=== PATIENT | male | born 1945 | race Asian ===

== ENCOUNTER 2017-07-17 01:45 | Emergency (ER) | payer OTHER, MEDICARE ==
[~2017-07-17] VITALS: Ht 170.2 cm; Wt 54.4 kg
[2017-07-17 01:45] VITALS: BP_SYST 122
[2017-07-17] MEDS ORDERED: GASTROGRAFIN 120 ML ONE (02:06)
[2017-07-17 03:17] VITALS: BP_SYST 122
== END 2017-07-17 03:17 | disposition home or self-care (01) ==
LOC: SED 01:45
DX: Z43.1 Encounter for attention to gastrostomy (principal); E11.9 Type 2 diabetes mellitus without complications; G81.91 Hemiplegia, unspecified affecting right dominant side
CPT/HCPCS: 43760; 74240; 99284; Q9963

== ENCOUNTER 2017-08-04 18:28 | Inpatient (IN) | payer OTHER, MEDICARE ==
[~2017-08-04] VITALS: Ht 172.7 cm; Wt 58.5 kg
[~2017-08-04 18:28] MED LIST: ALBU2.5V7 INH; ASCO500T20 GT; ASPI81TA2 GT; CRAN1CAP5 GT; DOCU-144 GT; FER300L GT; HYDR-3606 GT; INSU100V11 SQ; LANS15CA5 GT; LIP10 GT; MAGN400O4 PO; MULT-1184 GT; NITSL SL; SENN8.8S12 GT; TYLL650 GT
--- NOTE | 2017-08-04 18:28 | NUR ---
Pt was placed in bed 1 by ACLS 64
[2017-08-04 18:40] VITALS: BP_SYST 141
--- NOTE | 2017-08-04 18:40 | NUR ---
[facility], s/p ? aspiration, nurses at facility then report that patient had episode of red emesis. Oxygen saturation decreased to 87%, patient placed on 15 lpm via NRB Mask. Patient with eyes open, non-verbal, patient placed on cardiac montior which shows an atrial paced rhythm, patient on BP monitor, and pulse oximeter. Per POLST from Michael Campbell, patient is a DNR. Patient moaning, but unable to determine if patient is having pain. Awaiting evaluation by ER MD, will continue to observe and assess.
[2017-08-04] MEDS ORDERED: IPRATROPIUM BROM 0.5 MG/2.5 ML VIAL.NEB (ATROVENT) IH ONE (18:45)
[2017-08-04] MEDS ORDERED: ALBUTEROL SULFATE 0.083% 2.5 MG/3 ML VIAL.NEB IH ONE (18:45)
--- NOTE | 2017-08-04 18:45 | NUR ---
Dr Summers at bedside to evaluate patient.
[2017-08-04 19:10] LABS: BASOPHILS % (AUTO) 0.2 % (0.0-2.0); EOSINOPHILS # (AUTO) 0.1 K/uL (0.0-0.4); EOSINOPHILS % (AUTO) 1.3 % (0.0-4.0); HEMATOCRIT 40.4 % (36-54); HEMOGLOBIN 13.4 g/dL (14.0-18.0); LYMPHOCYTES # (AUTO) 1.9 K/uL (1.0-5.5); LYMPHOCYTES % (AUTO) 17.8 % (20.5-51.5); MEAN CORPUSCULAR HEMOGLOBIN 30 pg (27-31); MEAN CORPUSCULAR HGB CONC 33 % (32-36); MEAN CORPUSCULAR VOLUME 91 fL (79.0-98.0); MONOCYTES # (AUTO) 0.8 K/uL (0.0-1.0); MONOCYTES % (AUTO) 7.7 % (1.7-9.3); NEUTROPHILS # (AUTO) 7.9 K/uL (1.8-7.7); PLATELET COUNT (AUTO) 426 K/uL (130-430); RED BLOOD CELL COUNT(AUTO) 4.45 MIL/uL (4.2-6.2); RED CELL DISTRIBUTION WIDTH 14.8 % (9.0-15.0); WHITE BLOOD COUNT (AUTO) 10.7 K/uL (4.8-10.8)
--- NOTE | 2017-08-04 19:15 | NUR ---
Family at bedside, assessment remains unchanged.
[2017-08-04 19:20] LABS: ANION GAP 3 (5-15); CALCIUM 9.9 mg/dL (8.4-11.0); CHLORIDE 102 mmol/L (98-107); CREATININE 0.68 mg/dL (0.55-1.30); GLUCOSE 137 mg/dL (70-99); POTASSIUM 4.5 mmol/L (3.5-5.1); SODIUM SERUM 131 mmol/L (136-145); UREA NITROGEN, BLOOD 31 mg/dL (8-21)
[2017-08-04 19:24] LABS: ALANINE AMINOTRANSFERASE 31 U/L (12-78); ALBUMIN 3.5 g/dL (3.4-4.8); ASPARTATE AMINOTRANSFERASE 22 U/L (10-37); TOTAL BILIRUBIN 0.3 mg/dL (0.0-1.0)
[2017-08-04 19:28] LABS: INR 0.9 (0.80-1.20); PROTHROMBIN TIME 9.6 SECS (9.5-12.5)
--- NOTE | 2017-08-04 19:35 | NUR ---
Dr Rubalcava at bedside speaking with family using a Mandarin telephone velocity shooter #[id number]. Update given to family by Dr Rubalcava, awaiting results and dispo.
[2017-08-04] MEDS ORDERED: TYLL650 GT (19:50)
[2017-08-04] MEDS ORDERED: ACET-1010 GT (19:50)
--- NOTE | 2017-08-04 19:50 | NUR ---
# 14 FR In and Out catheter with use of sterile technique. Immediate return of 50 ml of clear/romeo urine noted. Urine sample collected and sent to lab. Pt tolerated procedure well. Patient unable to toilet self.
[2017-08-04] MEDS ORDERED: SENN8.6T19 GT (19:56)
[2017-08-04] MEDS ORDERED: PIPERACILLIN/TAZO 4.5 GM in NS 100 ML IV ONE (20:00)
[2017-08-04] MEDS ORDERED: NACL 0.9% 1,000 ML IV ONE ×2 (20:00)
[2017-08-04] MEDS ORDERED: CRAN450T9 GT (20:02)
--- NOTE | 2017-08-04 20:05 | NUR ---
Medication reconciliation completed with information provided by facility. Any prior medication reconciliation on file was reviewed and corrected.
[2017-08-04] MEDS ORDERED: PIPERACILLIN/TAZOBACTAM 4.5 GM/VIAL (ZOSYN) IV ONE (20:10)
[2017-08-04 20:12] LABS: BILIRUBIN,URINE NEGATIVE (NEGATIVE); BLOOD, URINE NEGATIVE (NEGATIVE); CLARITY/URINE CLEAR (CLEAR); COLOR,URINE YELLOW (YELLOW); GLUCOSE,URINE NEGATIVE (NEGATIVE); KETONES,URINE NEGATIVE (NEGATIVE); LEUKOCYTE ESTERASE ,URINE NEGATIVE (NEGATIVE); NITRITE, URINE NEGATIVE (NEGATIVE); PH,URINE 5.5 (5.0-8.0); PROTEIN URINE NEGATIVE (NEGATIVE); UROBILINOGEN,URINE 0.2 (0.2-1.0)
--- NOTE | 2017-08-04 20:25 | NUR ---
Scanner did not recognize IV fluids, information needed to be manually entered. Able to scan patient, but unable to scan IV fluids.
--- NOTE | 2017-08-04 20:55 | NUR ---
Dr Brooks at bedside to evaluate patient.
--- NOTE | 2017-08-04 21:00 | NUR ---
Admit floor called for bed assignment, spoke with charge nurse Jose Manuel, who states that he will call back with information.
--- NOTE | 2017-08-04 21:04 | NUR ---
Dr Brooks to speak with family using a Mandarin Bagger Meat. Awaiting transfer to floor.
--- NOTE | 2017-08-04 21:20 | NUR ---
Dr Brooks continues on phone speaking with family using a Mandarin Sponge Packer. Patient's code status is changed to full code, and is being upgraded to ICU. Admit floor notified of change.
--- NOTE | 2017-08-04 21:29 | NUR ---
Patient will be admitted to care of Dr Brooks. Admitted to ICU unit. Will go to room 4. Belongings list completed. Summary report printed. Report will be given at bedside. Transfer to ICU-4 via ACLS protocol. Licensed nurse present. IV present no signs or symptoms of infiltration.
[2017-08-04] MEDS ORDERED: HYDROcodone/ACETAMIN 5-325 MG TAB (NORCO/ VICODIN) GT PRN (21:30)
[2017-08-04] MEDS ORDERED: IPRATROPIUM/ALBUTEROL SULFATE 3 ML AMPUL.NEB INH PRN (21:30)
[2017-08-04] MEDS ORDERED: MILK OF MAGNESIA 30 ML UDC PO SCH (21:30)
[2017-08-04] MEDS ORDERED: ACETAMINOPHEN 650 MG/20.3 ML UDC GT PRN ×2 (21:30)
[2017-08-04] MEDS ORDERED: ACETAMINOPHEN 500 MG TABLET GT PRN (21:30)
[2017-08-04] MEDS ORDERED: NITROGLYCERIN 0.4 MG TAB.SUBL SL PRN (21:30)
--- NOTE | 2017-08-04 21:40 | NUR ---
TRANSFER TO ICU Received report from DRAINLAYER. Pt on 100% O2 non rebreathing mask with O2 sat at 100%. VSS with sinus rhythm on the monitor. Right upper chest ronchi heard upon auscultation. Pt is awake alert and mandarin speaking only unable to understand iraqi. Multiple rash noted on the arms, abdomen, back appears to be scabies. Will put on contact precaution. Gtube in placed and secured in the abdomen. IV 20G on the left forearm noted. Safety precaution observed. Call light within reach. HOB elevated in lowest position. Will continue to monitor Pt.
[2017-08-04] MEDS ORDERED: ONDANSETRON HCL 4 MG/2 ML VIAL IVP PRN (21:45)
[2017-08-04] MEDS ORDERED: MILK OF MAGNESIA 30 ML UDC GT PRN (21:45)
[2017-08-04 21:59] VITALS: BP_SYST 134
[2017-08-04 22:00] VITALS: BP_SYST 110
[2017-08-04] MEDS: NACL 0.9% 1,000 ML IV SCH (22:00)
--- NOTE | 2017-08-04 22:30 | NUR ---
NOTIFIED WITH PT STATUS, INFORMED HIM WITH SKIN RASHES WHICH APPEARS TO BE SCABIES LOOKING, ORDERS RECEIVED TO TREAT WITH ELIMITE.
[2017-08-04] MEDS ORDERED: PERMETHRIN 60 GM TOPICAL CREAM (ELIMITE) TP ONE ×2 (22:45→23:11)
--- NOTE | 2017-08-04 22:45 | NUR ---
PULMONARY CONSULT CALLED TO CAPACITY ANALYST FOR , REPORTED ABG RESULTS. ORDRES RECEIVED.
--- NOTE | 2017-08-04 22:55 | NUR ---
ID CONSULT FOR CALLED TO EXC, SPOKE WITH YIFAN .
[2017-08-04 22:59] VITALS: BP_SYST 106
[2017-08-04 23:00] VITALS: BP_SYST 106
[2017-08-04] MEDS: IPRATROPIUM/ALBUTEROL SULFATE 3 ML AMPUL.NEB INH SCH (23:02)
--- NOTE | 2017-08-04 23:10 | NUR ---
RESPIRATORY On 35% venti mask with 9L O2. O2 saturation still at 100%. Will continue to monitor Pt.
[2017-08-04] MEDS ORDERED: PIPERACILLIN/TAZOBACTAM 3.375 GM/VIAL (ZOSYN) IV ONE (23:12)
[2017-08-05] VITALS (25 sets, daily range): BP systolic 80–136
[2017-08-05] MEDS: PIPERACILLIN/TAZO 3.375/DEX-IS 50 ML IV SCH ×4 (00:10→17:38)
--- NOTE | 2017-08-05 01:00 | NUR ---
ELIMITE Took photos of the rashes and applied elimite from head to toe.
--- NOTE | 2017-08-05 01:30 | NUR ---
BP Blood pressure systolic going down to 80's. Will change blood pressure cycle to 15 minutes and will lower down HOB.
--- NOTE | 2017-08-05 02:00 | NUR ---
Called Dr. Brooks for Pt's low blood pressure. Orders received and will carry out order.
--- NOTE | 2017-08-05 02:01 | NUR ---
MD Dr Brooks ordered 1L fluid challenge and start levophed if map still below 65.
[2017-08-05] MEDS ORDERED: NACL 0.9% 1,000 ML IV ONE (02:14)
[2017-08-05] MEDS ORDERED: NOREPINEPHRINE 4 MG/4 ML VIAL IV ONE (03:39)
--- NOTE | 2017-08-05 03:39 | NUR ---
Pt blood pressure map still below 65 after fluid challenge. Will start levophed at mcg/min. Will continue to monitor Pt.
[2017-08-05] MEDS: NOREPINEPHRINE BITARTRATE 4 MG in NS 246 ML IV PRN ×2 (03:58→12:26)
[2017-08-05] MEDS: IPRATROPIUM/ALBUTEROL SULFATE 3 ML AMPUL.NEB INH SCH ×6 (04:20→23:25)
[2017-08-05] MEDS: NACL 0.9% 1,000 ML IV SCH ×2 (06:13→22:27)
--- NOTE | 2017-08-05 06:36 | NUR ---
CLOSING NOTES Pt in bed sleeping, no acute distress at this time. Levophed still running @ 7mcg/min. Will give report to oncoming RN.
[2017-08-05 06:46] LABS: HEMATOCRIT 33.4 % (36-54); HEMOGLOBIN 11.1 g/dL (14.0-18.0); MEAN CORPUSCULAR HEMOGLOBIN 31 pg (27-31); MEAN CORPUSCULAR HGB CONC 33 % (32-36); MEAN CORPUSCULAR VOLUME 92 fL (79.0-98.0); RED BLOOD CELL COUNT(AUTO) 3.62 MIL/uL (4.2-6.2); RED CELL DISTRIBUTION WIDTH 15.2 % (9.0-15.0)
[2017-08-05 06:59] LABS: WHITE BLOOD COUNT (AUTO) 30.8 K/uL (4.8-10.8)
[2017-08-05 07:19] LABS: ALANINE AMINOTRANSFERASE 25 U/L (12-78); ALBUMIN 2.6 g/dL (3.4-4.8); ANION GAP 7 (5-15); ASPARTATE AMINOTRANSFERASE 18 U/L (10-37); CALCIUM 8.7 mg/dL (8.4-11.0); CHLORIDE 107 mmol/L (98-107); CREATININE 0.82 mg/dL (0.55-1.30); GLUCOSE 179 mg/dL (70-99); POTASSIUM 4.3 mmol/L (3.5-5.1); SODIUM SERUM 138 mmol/L (136-145); TOTAL BILIRUBIN 0.4 mg/dL (0.0-1.0); UREA NITROGEN, BLOOD 25 mg/dL (8-21)
--- NOTE | 2017-08-05 07:30 | NUR ---
RECEIVED REPORT FROM KARRI HAMILTON. PT IN BED WITH EYES CLOSED, DOES NOT OPEN EYES TO VERBAL/TACTILE STIMULATION, NOT ABLE TO FOLLOW COMMANDS, BUT OCCASIONALLY MOVES LIMBS. VSS, O2 SAT 100% ON 1L NC. SR ON MONITOR. GT WITH DIABETISOURCE AT 70ML/HR. SOLANO DRAINING URINE TO GRAVITY. SCDs IN USE. PT HAS RED RASH ON LEFT SIDE OF BODY (TRUNK, ARM, LEG) AND PT IS ON PROPHYLACTIC CONTACT PRECAUTIONS AT THIS TIME PER NOC RN UNTIL PT EVALUATE BY DENVER SWANSON. 18G LEFT AC IV WITH NS AT 100ML/HR AND LEVOPHED AT 7MCG/MIN INFUSING, NO SIGNS INFILTRATION NOTED. HOB ELEVATED, BED LOCKED AND IN LOWEST POSITION, CALL LIGHT IN REACH. WILL CONTINUE TO MONITOR.
[2017-08-05] MEDS: DOCUSATE SODIUM 100 MG/10 ML UDC GT SCH ×2 (08:30→20:55)
[2017-08-05] MEDS: FERROUS SULFATE 300 MG/5 ML UDC GT SCH (08:30)
[2017-08-05] MEDS: LACTOBACILLUS RHAMNOSUS GG 1 CAP CAPSULE GT SCH ×2 (08:31→20:55)
[2017-08-05] MEDS: PANTOPRAZOLE GRANULES PACKET 40 MG GT SCH (08:31)
[2017-08-05] MEDS: ASCORBIC ACID 500 MG TABLET GT SCH ×2 (08:31→20:56)
[2017-08-05] MEDS: ASPIRIN 81 MG TAB.CHEW GT SCH (08:31)
--- NOTE | 2017-08-05 09:00 | NUR ---
MD ROUNDS DR THAPA HERE TO EVALUATE PT. MADE MD AWARE OF PT'S AM LABS (INCREASED WBC) AND ABG RESULTS. MADE MD AWARE THAT PT IS DIABETIC AND DOES NOT CURRENTLY HAVE SCHEDULED ACCUCHECK OR SLIDING SCALE. MD TO ORDER DECREASE TUBE FEEDING RATE TO 60ML/HR AND Q6 150ML H20 FLUSH.
--- NOTE | 2017-08-05 09:30 | NUR ---
I received consent through [employer] zinc furnace charger ( blue phone) from pts , Darvin Vang for the PICC line. Questions answered. Pts concerned about his breathing because last night he was on 100% oxygen. Informed her he is on much less oxygen, but that his blood pressure is his problem now. Explained that he is on levophed to help keep his blood pressure normal. Pts asked if she should come to the hospital right now and I said we would call her if he wasn't responding to the medication. She will comein later after work. Pts declined to speak to Dr Esquivel, who is available, at this time.
[2017-08-05 09:51] LABS: PLATELET COUNT (AUTO) 331 K/uL (130-430)
[2017-08-05 09:53] LABS: BAND % (MANUAL) 7 % (0-6); BASOPHILS % (MANUAL) 0 % (0-2); EOSINOPHILS % (MANUAL) 0 % (0-7); LYMPHOCYTES % (MANUAL) 4 % (20-46); MONOCYTES % (MANUAL) 1 % (0-11)
[2017-08-05] MEDS ORDERED: HYDROCORTISONE SOD SUCC 100 MG/2 ML VIAL IVP ONE (10:30)
[2017-08-05] MEDS: MULTIVITS,CA,MINERALS/IRON/FA 1 TABLET GT SCH (10:38)
[2017-08-05] MEDS ORDERED: DEXTROSE 50%-WATER 50 ML DISP.SYRIN IVP PRN (12:00)
[2017-08-05] MEDS ORDERED: GLUCOSE 15 GM GEL (in 37.5 GM TUBE) PO PRN ×2 (12:00)
--- NOTE | 2017-08-05 12:20 | NUR ---
LAURA, PICC RN HERE FOR PICC PLACEMENT. CONSENT RECEIVED EARLIER TODAY OVER TELEPHONE FROM PT'S , FARM MANAGEMENT ADVISER USED. TIME OUT COMPLETE WIH TWO RNs AT BEDSIDE. STERILE TECHNIQUE OBSERVED. PICC LINE PLACED TO GISELLA. CXR FOR PLACEMENT CONFIRMATION, LAURA HAMILTON SAID OKAY TO USE. PT TOLERATED WELL, NO SIGNS PAIN/DISTRESS OBSERVED. WILL CONTINUE TO MONITOR.
[2017-08-05] MEDS: INSULIN REGULAR, HUMAN 100 UNITS/ML, 10 ML VIAL (novoLIN R) SUBCUT PRN ×2 (12:28→17:40)
[2017-08-05] MEDS: metroNIDAZOLE 500 mg/NS 100 ML IV SCH ×2 (13:00→21:01)
[2017-08-05] MEDS: HYDROCORTISONE SOD SUCC 100 MG/2 ML VIAL IVP SCH ×2 (13:00→21:02)
--- NOTE | 2017-08-05 14:57 | NUR ---
PT GIVEN BATH WITH SOAP AND WARM WATER TO CLEANSE AFTER ELIMITE APPLICATION LAST NIGHT. ALL LINEN REMOVED FROM BED, INCLUDING PT GOWN AND PLACED IN BIOHAZARD BAGS. MATTRESS CLEANED WITH PURPLE SANICLOTH WIPES PER PRODUCTION SPECIALIST. LEADS, O2 SENSORS, BP CUFF, SCDs REMOVED FROM PT AND REPLACED WITH NEW ONES. PILLOWS REMOVED AND REPLACED. TABLES AND CHAIRS WIPED DOWN WITH PURPLE SANICLOTH WIPES WELL. PT TOLERATED WELL, NO SIGNS DISTRESS/PAIN OBSERVED. VSS. WILL CONTINUE TO MONITOR.
--- NOTE | 2017-08-05 15:39 | NUR ---
MD ROUNDS DR MARQUEZ HERE TO EVALUATE PT. MADE MD AWARE PT RECEIVED ELIMITE APPLICATION LAST NIGHT AND WAS GIVEN BATH TO REMOVE TODAY. MD AWARE PT ON LEVOPHED DRIP. NO NEW ORDERS RECEIVED AT THIS TIME.
--- NOTE | 2017-08-05 18:15 | NUR ---
Call placed to Dr. Spaulding regarding wide tachy rhythm on monitor, rate at 120. Pt alert and has a pulse and BP stable off levophed. BP 105/52. manager shift RN aware.
--- NOTE | 2017-08-05 19:15 | NUR ---
REPORT GIVEN TO CAPRICE HAMILTON USING SBAR.
--- NOTE | 2017-08-05 19:30 | NUR ---
OPENING NOTE PT RECEIVED FROM PREVIOUS SHIFT RN. PT IS AWAKE, ALERT. NO SIGNS OF DISTRESS, NO COMPLAINT OF PAIN OR DISCOMFORT. SINUS RHYTHM ON THE HOTEL CONTROLLER WITH MOMENTS OF NOTED MOMENTS OF RAPID RHYTHM WITH WIDE QRS COMPLEXES. CURRENTLY ON CONTACT ISOLATION FOR SUSPECTED SCABIES. CARE TO RESUME THROUGH SHIFT.
--- NOTE | 2017-08-05 19:55 | NUR ---
FOR CARDIOLOGY CONSULT , ARABELLA AT EXC NOTIFIED .
--- NOTE | 2017-08-05 20:05 | NUR ---
DR. MCNEAL CALLED BACK, UP DATED PT CONDITION AND PT HAVING WIDE QRS TACHYCARDIA. ORDER RECEIVED FOR 250 ML NS IV BOLUS.
--- NOTE | 2017-08-05 20:10 | NUR ---
NS IV BOLUS STARTED WIDE OPEN.
[2017-08-05] MEDS ORDERED: NS 250 ML IV ONE (20:15)
[2017-08-05] MEDS: ATORVASTATIN 10 MG TABLET GT SCH (20:55)
[2017-08-05] MEDS: SENNOSIDES 8.6 MG TABLET GT SCH (20:56)
[2017-08-05] MEDS ORDERED: IVERMECTIN 3 MG TABLET PO ONE (21:00)
[2017-08-05] MEDS: CRANBERRY SUPPLEMENT GT SCH (21:00)
[2017-08-05] MEDS ORDERED: VANCOMYCIN HCL 1 GM/NS PREMIX 250 ML IV ONE (21:00)
[2017-08-05] MEDS ORDERED: VANCOMYCIN HCL 1000 MG/VIAL IV ONE (21:14)
[2017-08-06] VITALS (17 sets, daily range): BP systolic 101–145
[2017-08-06] MEDS: PIPERACILLIN/TAZO 3.375/DEX-IS 50 ML IV SCH ×3 (00:43→11:02)
[2017-08-06] MEDS: IPRATROPIUM/ALBUTEROL SULFATE 3 ML AMPUL.NEB INH SCH ×6 (04:35→23:16)
[2017-08-06] MEDS: metroNIDAZOLE 500 mg/NS 100 ML IV SCH ×3 (05:44→23:04)
[2017-08-06] MEDS: HYDROCORTISONE SOD SUCC 100 MG/2 ML VIAL IVP SCH ×2 (05:44→21:58)
[2017-08-06] MEDS: INSULIN REGULAR, HUMAN 100 UNITS/ML, 10 ML VIAL (novoLIN R) SUBCUT PRN ×2 (06:18→12:25)
--- NOTE | 2017-08-06 06:55 | NUR ---
Nutrition Update Sixto Scale 14 noted. Pt admitted for Aspiration Pneumonia Diet: tube feeding BMI: 21.8 kg/m2 RD to follow per nutrition care standards.
[2017-08-06 07:01] LABS: ALANINE AMINOTRANSFERASE 24 U/L (12-78); ALBUMIN 2.5 g/dL (3.4-4.8); ANION GAP 4 (5-15); ASPARTATE AMINOTRANSFERASE 17 U/L (10-37); CALCIUM 8.8 mg/dL (8.4-11.0); CHLORIDE 109 mmol/L (98-107); GLUCOSE 169 mg/dL (70-99); POTASSIUM 3.1 mmol/L (3.5-5.1); SODIUM SERUM 139 mmol/L (136-145); TOTAL BILIRUBIN 0.3 mg/dL (0.0-1.0); UREA NITROGEN, BLOOD 24 mg/dL (8-21)
--- NOTE | 2017-08-06 07:28 | NUR ---
CLOSING NOTE PT IN BED, AWAKE, ALERT. NO SIGNS OF DISTRESS, NO PAIN OR DISCOMFORT. NO ACUTE CHANGES IN GENERAL CONDITION OVERNIGHT. CARE WILL RESUME THROUGH TO NEXT SHIFT.
--- NOTE | 2017-08-06 07:31 | NUR ---
AM ASSESSMENT Pt received from night RN with eyes open laying in bed. Even and symmetrical rise and fall of chest. Pt is currently on 1 L via N.C. with oxygen saturation 100%. Right upper arm PICC line infusing NS. Both ports of PICC are able to flush with blood. Observation of skin, spots of discoloration that pt is itching. Pt in isolation for scabies. Pt is primary Mandarin speaking, but will give head nods to answer questions.
--- NOTE | 2017-08-06 07:31 | NUR ---
AM ASSESSMENT ... continued... Gonzalez cath in place draining yellow urine to gravity. G-Tube infusing Diabetisource @ 60cc/hr. Bilateral SCD in place. Bed in Lowest position, re-oriented pt to call light that is within reach. No signs of injury or complaints of distress. Will continue to monitor pt.
[2017-08-06] MEDS: ASCORBIC ACID 500 MG TABLET GT SCH ×2 (08:37→21:59)
[2017-08-06] MEDS: ASPIRIN 81 MG TAB.CHEW GT SCH (08:37)
[2017-08-06] MEDS: DOCUSATE SODIUM 100 MG/10 ML UDC GT SCH ×2 (08:37→21:58)
[2017-08-06] MEDS: LACTOBACILLUS RHAMNOSUS GG 1 CAP CAPSULE GT SCH ×2 (08:37→21:58)
[2017-08-06] MEDS: MULTIVITS,CA,MINERALS/IRON/FA 1 TABLET GT SCH (08:37)
[2017-08-06] MEDS: PANTOPRAZOLE GRANULES PACKET 40 MG GT SCH (08:37)
[2017-08-06] MEDS: FERROUS SULFATE 300 MG/5 ML UDC GT SCH (08:37)
[2017-08-06] MEDS: CRANBERRY SUPPLEMENT GT SCH ×2 (09:00→21:00)
--- NOTE | 2017-08-06 09:12 | NUR ---
MD Dr. Butcher at bedside with pt. Will continue to monitor
[2017-08-06] MEDS ORDERED: POTASSIUM CHLORIDE 20 MEQ/PKT PACKET PO ONE (09:30)
[2017-08-06] MEDS: POTASSIUM CHLORIDE 10 MEQ in 0.45% NACL 1,000 ML IV SCH (10:55)
--- NOTE | 2017-08-06 12:46 | NUR ---
Dietitian Recommendations *Recommend Diabetisource AC at 60ml/hr, Prosource TID, FWF 85ml Q6H via GT Provides: 1908 kcal, 131 gm protein and 1270ml free water. Meets: 98% of upper end of estimated calorie needs and 104% of estimated protein needs. Please see Nutritional Assessment for details. DETENTION, RD
[2017-08-06] MEDS ORDERED: POTASSIUM CHLORIDE 20 MEQ/PKT PACKET GT ONE (14:15)
--- NOTE | 2017-08-06 14:55 | NUR ---
TRANSFERRED PT TO 105A WITH BELONGINGS. PLACED ON TELE. SR ON MONITOR. VSS. WILL CONTINUE TO MONITOR PT. ISOLATION MAINTAINED.
--- NOTE | 2017-08-06 15:00 | NUR ---
ASSUMED CARE OF THE PT FROM DIANA HAMILTON. PT ALERT, CONFUSED AND AGITATED ON AND OFF. SR ON MONITOR. RARE PACED BEATS SEEN. VSS. PT HAS HOB UP. LUNGS RHONCHI BILATERALLY. 02 1L NC. SATS 97%. NO SOB.PT HAS A RASH NOTED ALL OVER HIS BODY THAT HE ITCHES. SCABIES ISOLATION MAINTAINED. WILL CONTINUE TO MONITOR PT.
--- NOTE | 2017-08-06 16:15 | NUR ---
REPORT GIVEN TO GLORY HAMILTON TO ASSUME CARE OF PT. ISOLATION PRECAUTIONS MAINTAINED.
--- NOTE | 2017-08-06 16:25 | NUR ---
REPORT: Received from ALFONSO Hebert for continuation of care.
--- NOTE | 2017-08-06 18:18 | NUR ---
CLOSING NOTE: All needs met. Patient is in bed, DiabeteSource running at 60cc/hr to gtube, 1/2NS w/10MEQ potassium to PICC line in right upper arm, myers catheter in place draining to gravity. Will endorse to NOC shift nurse.
--- NOTE | 2017-08-06 19:43 | NUR ---
Opening note Received patient awake, alert, and oriented x1. Patient is confused. All lines and tubes intact. Plan of care reviewed. Bed is down, locked, side rails up x2, call light within reach. Bed alarm on. Will continue to monitor.
--- NOTE | 2017-08-06 20:53 | NUR ---
Paged Dr. Spaulding Paged Dr. Spaulding, dialed [phone], s/w [place]
--- NOTE | 2017-08-06 21:03 | NUR ---
Spoke to Dr. Herbert Spoke to Dr. Herbert. Notified MD of patient being confused and pulling out lines. MD ordered a sitter. Orders noted and carried out.
[2017-08-06] MEDS: SENNOSIDES 8.6 MG TABLET GT SCH (21:58)
[2017-08-06] MEDS: POTASSIUM CHLORIDE 20 MEQ/PKT PACKET PO SCH (21:59)
[2017-08-06] MEDS: ATORVASTATIN 10 MG TABLET GT SCH (21:59)
[2017-08-06] MEDS ORDERED: cefTRIAXone 1 GM IVPB PREMIX 50 ML IV ONE (22:08)
[2017-08-06] MEDS: cefTRIAXone 1 GM in D5W 50 ML IV SCH (22:13)
--- NOTE | 2017-08-06 23:07 | NUR ---
Rounds Patient is confused pulling at lines. New myers catheter secure device placed on leg. Bed is down, locked, side rails up x2, bed alarm on, call light within reach. Will continue to monitor.
[2017-08-07] VITALS (7 sets, daily range): BP systolic 103–118
[2017-08-07] MEDS: POTASSIUM CHLORIDE 10 MEQ in 0.45% NACL 1,000 ML IV SCH ×2 (00:23→17:46)
--- NOTE | 2017-08-07 01:01 | NUR ---
Rounds Patient is awake and confused pulling at lines. New myers catheter secure device placed. Bed is down, locked, side rails up x2, bed alarm on, call light within reach. Will continue to monitor.
--- NOTE | 2017-08-07 03:18 | NUR ---
Rounds Patient is resting in bed. No s/s of distress noted. Bed is down, locked, side rails up x2, bed alarm on, call light within reach. Will continue to monitor.
[2017-08-07] MEDS: IPRATROPIUM/ALBUTEROL SULFATE 3 ML AMPUL.NEB INH SCH ×6 (04:15→23:14)
--- NOTE | 2017-08-07 05:20 | NUR ---
Rounds Patient is resting in bed pulling at lines. New myers catheter secure device placed. Bed is down, locked, side rails up x2, bed alarm on, call light within reach. Will continue to monitor.
[2017-08-07] MEDS: metroNIDAZOLE 500 mg/NS 100 ML IV SCH ×3 (05:32→22:34)
[2017-08-07 07:02] LABS: BASOPHILS # (AUTO) 0.1 K/uL (0.0-0.2); BASOPHILS % (AUTO) 0.7 % (0.0-2.0); EOSINOPHILS % (AUTO) 0.3 % (0.0-4.0); HEMATOCRIT 28.9 % (36-54); HEMOGLOBIN 9.7 g/dL (14.0-18.0); LYMPHOCYTES # (AUTO) 0.9 K/uL (1.0-5.5); LYMPHOCYTES % (AUTO) 7.7 % (20.5-51.5); MEAN CORPUSCULAR HEMOGLOBIN 31 pg (27-31); MEAN CORPUSCULAR HGB CONC 34 % (32-36); MEAN CORPUSCULAR VOLUME 92 fL (79.0-98.0); MONOCYTES # (AUTO) 0.7 K/uL (0.0-1.0); MONOCYTES % (AUTO) 6.3 % (1.7-9.3); NEUTROPHILS # (AUTO) 9.7 K/uL (1.8-7.7); PLATELET COUNT (AUTO) 255 K/uL (130-430); RED BLOOD CELL COUNT(AUTO) 3.13 MIL/uL (4.2-6.2); RED CELL DISTRIBUTION WIDTH 15.5 % (9.0-15.0); WHITE BLOOD COUNT (AUTO) 11.4 K/uL (4.8-10.8)
[2017-08-07 07:13] LABS: ALANINE AMINOTRANSFERASE 15 U/L (12-78); ALBUMIN 2.3 g/dL (3.4-4.8); ANION GAP 4 (5-15); ASPARTATE AMINOTRANSFERASE 30 U/L (10-37); CALCIUM 8.8 mg/dL (8.4-11.0); CHLORIDE 112 mmol/L (98-107); GLUCOSE 132 mg/dL (70-99); POTASSIUM 4.1 mmol/L (3.5-5.1); SODIUM SERUM 141 mmol/L (136-145); TOTAL BILIRUBIN 0.2 mg/dL (0.0-1.0); UREA NITROGEN, BLOOD 24 mg/dL (8-21)
--- NOTE | 2017-08-07 07:52 | NUR ---
DIRECT OBSERVER NOTES EMPTIED OUT THE PATIENT'S SOALNO AND TOOK OUT 400CC URINE.
--- NOTE | 2017-08-07 07:54 | NUR ---
Closing note Patient is resting in bed. Patient is confused. All lines and tubes intact. Tube feeding changed. AM care performed. New myers catheter secure device placed on leg. Bed is down, locked, side rails up x2, bed alarm on, call light within reach. Sitter is present. Endorsed care to day shift nurse.
--- NOTE | 2017-08-07 08:00 | NUR ---
Opening Notes, Pt in bed, pt is alert and awake, pt is non verbal. PICC on the right upper arm intact and patent. ivfluids running and infusing well. Gt-in place, diabetisource infusing well. Myers catheter secure device placed. Bed in low position, Sitter at bed side for pt's safety as pt has beed reported to pull on his myers. side rails up x2, bed alarm on, call light within reach. Will continue to monitor.
[2017-08-07] MEDS: CRANBERRY SUPPLEMENT GT SCH ×2 (09:00→20:48)
--- NOTE | 2017-08-07 09:10 | NUR ---
DIRECT OBSERVER NOTES PATIENT WAS SEEN BY LACEMAKER LAURA VELÁSQUEZ. EMPTIED OUT PATIENT'S SOLANO 200CCs. PATIENT FOLLOWS COMMAND AND COMFORT MEASURES ARE MET. NO SIGNSOR SYMPTOMS OF DISTRESS. WILL CONTINUE TO OBSERVE PATIENT.
[2017-08-07] MEDS: FERROUS SULFATE 300 MG/5 ML UDC GT SCH (09:15)
[2017-08-07] MEDS: DOCUSATE SODIUM 100 MG/10 ML UDC GT SCH ×2 (09:15→20:46)
[2017-08-07] MEDS: LACTOBACILLUS RHAMNOSUS GG 1 CAP CAPSULE GT SCH ×2 (09:15→20:46)
[2017-08-07] MEDS: POTASSIUM CHLORIDE 20 MEQ/PKT PACKET PO SCH ×2 (09:15→21:06)
[2017-08-07] MEDS: PANTOPRAZOLE GRANULES PACKET 40 MG GT SCH (09:15)
[2017-08-07] MEDS: ASPIRIN 81 MG TAB.CHEW GT SCH (09:16)
[2017-08-07] MEDS: ASCORBIC ACID 500 MG TABLET GT SCH ×2 (09:16→20:47)
[2017-08-07] MEDS: HYDROCORTISONE SOD SUCC 100 MG/2 ML VIAL IVP SCH ×2 (09:16→20:49)
[2017-08-07] MEDS: MULTIVITS,CA,MINERALS/IRON/FA 1 TABLET GT SCH (09:16)
--- NOTE | 2017-08-07 10:00 | NUR ---
DIRECT OBSERVER NOTES PATIENT IN BED COMFORTABLE. WITHOUT ANY SIGNS OR SYMPTOMS OF DISTRESS. EMERSON HAMILTON ADMINISTERED MEDICATIONS VIA G-TUBE. WOOD PILE DRIVER OPERATOR NANCY SAHA CAME IN TO EXAMINE PATIENT. SOLANO CATHETER EMPTIED 100CCs OF URINE EMPTIED OUT. SCD'S PUT ON LEGS BILATERALLY. PATIENT DOES HAVE A COUGH THAT IS CONSISTENT. WILL CONTINUE TO OBSERVE PATIENT.
--- NOTE | 2017-08-07 10:36 | NUR ---
DIRECT OBSERVER NOTES PATIENT HAD A LARGE TARRY BOWEL MOVEMENT HAD THE ASSISTANCE OF EMERSON HAMILTON AND THE ADMITTING NURSE MARITZA HAMILTON TO HELP CLEAN PATIENT. PATIENT STABLE WITH COMFORT MEASURES MET. WILL CONTINUE TO OBSERVE PATIENT.
--- NOTE | 2017-08-07 11:43 | NUR ---
spoke with alejandra, infection control nurse, told her that dr. puga ordered another wet mount. alejandra said she will call dr puga to check if he still wants the wet mount because pt was treated with elimite on 08/05/17.
--- NOTE | 2017-08-07 12:01 | NUR ---
DIRECT OBSERVER NOTES PATIENT IN BED STABLE RESTING. NO SIGNS OR SYMTOMS OF DISTRESS. INFECTION CONTROL NURSE OLIVA HAMILTON AND INFECTION CONTROL CORDINATOR ERIC IN ROOM DOING A SCRAPING TO CHECK FOR SCABIES. WILL CONTINUE TO OBSERVE PATIENT. COMFORT MEASURES MET.
--- NOTE | 2017-08-07 13:03 | NUR ---
DIRECT OBSERVER NOTES PATIENT IN BED SITTING UP COMFORTABLY WATCHING TELEVISION. PATIENT STILL CONTINUES TO COUGH. EMPTIED OUT SOLANO CATHETER EMPTIED OUT 300CCs OF URINE. WILL CONTINUE TO OBSERVE PATIENT.
--- NOTE | 2017-08-07 14:02 | NUR ---
DIRECT OBSERVER NOTES PATIENT RESTING COMFORTABLY IN BED WATCHING TELEVISION. NO SIGNS OR SYMTOMS OF DISTRESS. WILL CONTINUE TO MONITOR PATIENT AND HAVE COMFORT MEASURES MET. EMPTIED OUT PATIENTS SOLANO CATHETER AND 150CCs OF URINE EMPTIED OUT.
[2017-08-07] MEDS ORDERED: PERMETHRIN 60 GM TOPICAL CREAM (ELIMITE) TP ONE (15:15)
--- NOTE | 2017-08-07 15:26 | NUR ---
DIRECTO OBSERVER NOTES PATIENT STABLE IN BED RECEIVING BREATHING TREATMENT BY THE RESPIRATORY THERAPIST YESSICA. PATIENT SATURATION IS 100% WIHTOUT ANY SIGNS OR SYMPTOMS OF DISTRESS. EMPTIED THE PATIENTS SOLANO CATHETER REMOVED 300CCs OF URINE. WILL CONTINUE TO OBSERVE PATIENT. SAFETY PRECAUTIONS AND COMFORT MEASURES MET.
--- NOTE | 2017-08-07 16:58 | NUR ---
DIRECT OBSERVER NOTES EMERSON HAMILTON PUT A CREAM FROM HEAD TO TOE ALONG THE PATIENTS BODY. PATIENT WAS ITCHY AND THE SCRAPING THEY INFECTIOUS DISEASE NURSE DID ENDED UP BEING POSITIVE. CLEANED THE PATIENT UP AND PUT A BRAND NEW NAHUN UNDERNEATH. MADE SURE COMFORT MEASURES ARE MET AND PATIENT MEETS SAFETY PRECAUTIONS. WILL CONTINUE TO MONITOR PATIENT.
--- NOTE | 2017-08-07 17:28 | NUR ---
DIRECT OBSERVER NOTES PATIENT SON IS VISITING PATIENT. A LITTLE BIT OF A LANGUAGE BARRIER SINCE THE SON ALSO SPEAKS A LITTLE GREENLANDIC, MANDARIN SPEAKING ONLY. PATIENT WITHOUT ANY SIGNS OR SYMPTOMS OF DISTRESS. WILL CONTINUE TO OBSERBE PATIENT.
[2017-08-07] MEDS: DEXTROSE 50%-WATER 50 ML DISP.SYRIN IVP PRN (17:35)
--- NOTE | 2017-08-07 17:46 | NUR ---
PAGE CALLED FOR DR. MARQUEZ. SPOKE TO DR. MARQUEZ, DIALED [phone].
--- NOTE | 2017-08-07 17:55 | NUR ---
PT'S SON IN ROOM, UPDATED WITH PT'S STATUS AND PLAN OF CARE USING THE BLUE PHONE [employer] CARPET WINDER.
--- NOTE | 2017-08-07 18:04 | NUR ---
pt finger stick blood sugar wa 66/65, pt given d50 as ordered, dr hoffman made aware and no new order given. blood sugar re-checked it was 149.
--- NOTE | 2017-08-07 18:45 | NUR ---
CLOSING NOTES, PT HAS BEEN STABLE THE WHOLE SHIFT, PT WAS WITH SITTER, PT PULLING ON HIS SOLANO AND SECUREMENT DEVICE. PT WAS GIVEN ELIMITE AGAIN TODAY ORDERED AFTER MITE SEEN POSITIVE ON WET MOUNT DONE TODAY BY INFECTION CONTROL NURSE. BLOOD SUGAR WAS LOW AT 66 AND 65 THIS PM, D50 WAS GIVEN AND IT WENT UP TO 149, DR DODD WAS MADE AWARE AND NO NEW ORDER GIVEN.
--- NOTE | 2017-08-07 19:25 | NUR ---
Opening note Received patient awake, alert, and oriented x1. Patient is confused. PICC line noted to the right upper arm, intact and flushes well with good blood return. Gonzalez noted draining dark yellow urine. Plan of care reviewed and reoriented to call light, patient verbalized understanding. Denies needs at this time. Bed is down, locked, side rails up x2, sitter is present. Bed alarm on. Will continue to monitor.
[2017-08-07] MEDS: SENNOSIDES 8.6 MG TABLET GT SCH (20:47)
[2017-08-07] MEDS: ATORVASTATIN 10 MG TABLET GT SCH (20:48)
[2017-08-07] MEDS: cefTRIAXone 1 GM in D5W 50 ML IV SCH (20:49)
--- NOTE | 2017-08-07 21:20 | NUR ---
Rounds Patient is resting in bed. No s/s of distress. Patient continues to be confused. Bed is down, locked, side rails up x2, sitter present. Bed alarm on. Will continue to monitor.
--- NOTE | 2017-08-07 23:22 | NUR ---
Rounds Patient is awake in bed and remains confused. No s/s of distress noted. Bed is down, locked, side rails up x2, bed alarm on. Sitter is present.
[2017-08-08 00:02] VITALS: BP_SYST 116
--- NOTE | 2017-08-08 01:21 | NUR ---
Rounds Patient is awake in bed and pulling at lines, patient remains confused. No s/s of distress noted. Bed is down, locked, side rails up x2, bed alarm on. Sitter is present.
--- NOTE | 2017-08-08 03:20 | NUR ---
Rounds Patient is awake in bed and pulling at lines.. No s/s of distress noted at this time. Bed is down, locked, side rails up x2, bed alarm on. Sitter is present.
[2017-08-08] MEDS: metroNIDAZOLE 500 mg/NS 100 ML IV SCH ×3 (05:02→21:32)
--- NOTE | 2017-08-08 05:19 | NUR ---
AM care/ G-tube dressing changed AM care performed. G-tube dressing changed. Patient tolerated well. No s/s of distress. Batteries replaced in tele heart monitor. Bed is down, locked, side rails up x2, sitter present. Bed alarm on.
--- NOTE | 2017-08-08 06:38 | NUR ---
Closing note Patient is resting in bed pulling at lines. Patient is confused. PICC line is intact running fluids at prescribed rate. G-tube is intact and ruuning at prescribed rate. Gonzalez is draining urine by gravity, no kinks noted. All needs met and anticipated by [facility] nurses. Bed is down, locked, side rails up x2, bed alarm on, sitter present. Will endorse care to day shift nurse. Addendum: 08/08/17 at 0640 by Lubna Bell RN running
[2017-08-08 06:50] LABS: BASOPHILS % (AUTO) 0.4 % (0.0-2.0); EOSINOPHILS # (AUTO) 0.9 K/uL (0.0-0.4); EOSINOPHILS % (AUTO) 9.9 % (0.0-4.0); HEMOGLOBIN 10.4 g/dL (14.0-18.0); LYMPHOCYTES # (AUTO) 0.9 K/uL (1.0-5.5); LYMPHOCYTES % (AUTO) 10.4 % (20.5-51.5); MEAN CORPUSCULAR HEMOGLOBIN 31 pg (27-31); MEAN CORPUSCULAR HGB CONC 33 % (32-36); MEAN CORPUSCULAR VOLUME 92 fL (79.0-98.0); MONOCYTES # (AUTO) 0.7 K/uL (0.0-1.0); MONOCYTES % (AUTO) 7.5 % (1.7-9.3); NEUTROPHILS # (AUTO) 6.6 K/uL (1.8-7.7); NEUTROPHILS % (AUTO) 71.8 % (40.0-70.0); PLATELET COUNT (AUTO) 255 K/uL (130-430); RED BLOOD CELL COUNT(AUTO) 3.36 MIL/uL (4.2-6.2); RED CELL DISTRIBUTION WIDTH 15.7 % (9.0-15.0); WHITE BLOOD COUNT (AUTO) 9.1 K/uL (4.8-10.8)
[2017-08-08 07:05] LABS: ANION GAP 3 (5-15); CALCIUM 8.6 mg/dL (8.4-11.0); CHLORIDE 108 mmol/L (98-107); CREATININE 0.65 mg/dL (0.55-1.30); GLUCOSE 138 mg/dL (70-99); POTASSIUM 3.8 mmol/L (3.5-5.1); SODIUM SERUM 140 mmol/L (136-145); UREA NITROGEN, BLOOD 20 mg/dL (8-21)
[2017-08-08] MEDS: IPRATROPIUM/ALBUTEROL SULFATE 3 ML AMPUL.NEB INH SCH ×5 (07:43→23:58)
[2017-08-08 08:00] VITALS: BP_SYST 117
--- NOTE | 2017-08-08 08:00 | NUR ---
RN OPENING NOTE PATIENT RESTING ON BED, ALERT ORIENTED, SPEAK MANDARIN, NOD WITH HIS HEAD WHEN GREETING HIM IN MANDARIN, DENIES PAIN OR DISCOMFORT. BASED ON FLACC SCALE. PATIENT VITAL SIGNS WERE MEASURED AND ARE STABLE. PATIENT WAS ASSESSED, SCABETIC SCRATCH REYES ALL OVER THE BODY, BUT NO INTENSE ITCHING, PATIENT WILL BE GIVEN A BATH AT 1638 THIS AFTER NOON, ZERO RESIDUE FOR THE G TUBE, PICC LINE WAS FLUSHED AND TESTED FOR BLOOD RETURN, NO PROBLEM, WILL BE PASSING HIS MED AT 0900, SITTER BY BEDSIDE, BED AT A LOW POSITION AND BED ALARM ARE ON, WILL CONTINUE TO MONITOR.
[2017-08-08] MEDS: CRANBERRY SUPPLEMENT GT SCH ×2 (09:00→20:35)
[2017-08-08] MEDS: HYDROCORTISONE SOD SUCC 100 MG/2 ML VIAL IVP SCH ×2 (09:50→20:34)
[2017-08-08] MEDS: ASCORBIC ACID 500 MG TABLET GT SCH ×2 (09:51→20:34)
[2017-08-08] MEDS: MULTIVITS,CA,MINERALS/IRON/FA 1 TABLET GT SCH (09:51)
[2017-08-08] MEDS: DOCUSATE SODIUM 100 MG/10 ML UDC GT SCH ×2 (09:51→20:34)
[2017-08-08] MEDS: POTASSIUM CHLORIDE 20 MEQ/PKT PACKET PO SCH ×2 (09:51→20:34)
[2017-08-08] MEDS: ASPIRIN 81 MG TAB.CHEW GT SCH (09:51)
[2017-08-08] MEDS: PANTOPRAZOLE GRANULES PACKET 40 MG GT SCH (09:51)
[2017-08-08] MEDS: FERROUS SULFATE 300 MG/5 ML UDC GT SCH (09:51)
--- NOTE | 2017-08-08 10:00 | NUR ---
RN ROUNDS. PATIENT RESTING ON BED, DR. MCNEAL SAW THE PATIENT, FLACC SCALE SHOWS THE PATIENT NOT IN PAIN, HIS FEEDING TUBE GOING AT THE PRESCRIBED RATE. PATIENT WAS GIVEN HIS MED AT 0900. SITTER BY BEDSIDE, WILL CONTINUE TO MONITOR
[2017-08-08] MEDS: LACTOBACILLUS RHAMNOSUS GG 1 CAP CAPSULE GT SCH ×2 (10:15→20:34)
--- NOTE | 2017-08-08 12:00 | NUR ---
RN ROUNDS PATIENT RESTING ON BED, G TUBE RESIDUE IS ZERO. PATIENT IS RUNNING THE G TUBE AT 60 ML/HR, PATIENT BLOOD SUGAR WAS MEASURED TO BE 150MG/DL, PATIENT GOT NO INSULIN COVERAGE. PATIENT G TUBE WAS FLUSHED WITH 150 ML OF FREE WATER. BED AT LOW POSITION AND CALL LIGHT WITHIN REACH, WILL CONTINUE TO MONITOR.
[2017-08-08 12:02] VITALS: BP_SYST 130
--- NOTE | 2017-08-08 14:00 | NUR ---
RN ROUNDS PATIENT RESTING ON BED, OPEN EYES , NON VERBAL. FLACC SCALE SHOWS PATIENT HAS NO APPARENT PAIN, PATIENT WAS REPOSITIONED IN BED, WILL CONTINUE TO MONITOR.
[2017-08-08] MEDS: POTASSIUM CHLORIDE 10 MEQ in 0.45% NACL 1,000 ML IV SCH (14:38)
--- NOTE | 2017-08-08 15:14 | NUR ---
DC planning: Discussed dc plan with Dr. Spaulding. He gave order for [facility] eval and transfer tomorrow 08/09/17 if accepted--Order faxed to [place] central office at fax#[phone]--MARTINEZ for [facility] [place] to call me. She returned call and said she got the order and will f/u--JUANITA HAMILTON
--- NOTE | 2017-08-08 16:00 | NUR ---
RN ROUNDS PATIENT RESTING ON BED, SON IS BY BEDSIDE, PATIENT WAS REPOSITIONED, SITTER IS BY THE BEDSIDE, FEEDING IS RUNNING AT 60ML/HR . IVF IS RUNNING AT 50ML /HR,. PATIENT SEEMS TO HAVE NO PAIN ACCORDING TO FLACC SCALE. PATIENT BED WAS MADE FOR HIM , SINCE HE HAS A BOWEL MOVEMENT, WILL CONTINUE TO MONITOR.
[2017-08-08 16:34] VITALS: BP_SYST 110
[2017-08-08] MEDS ORDERED: IVERMECTIN 3 MG TABLET PO ONE (18:00)
--- NOTE | 2017-08-08 18:00 | NUR ---
RN CLOSING NOTE PATIENT RESTING ON THE BED, EARLIER THE SITTER REPORTED THE PATIENT IS HAVING A LOT OF SECRETION HEARED IN HIS THROAT. PATIENT OXYGEN SATURATION WAS MEASURED ON ROOM AIR. AND IT WAS 88%, PATIENT WAS PUT ON 2 LITRE N/C AND SATURATION RAISE TO 92% THEN WE SET UP OROPHARYNGEAL SUCTION AND FROTHY THICK SPUTUM WAS SUCKED OUT AND OXYGEN SATURATION RAISED UP TO 97% MEANWHILE WE CALL THE RT TO GIVE THE PATIENT BREATHING TREATMENT, PATIENT NOW SATURATION IS 100%. AFTER THEN WE REDUCE IT TO 1 LITRE AND HE IS STILL WAS AT 99% AND THEN REMOVED IT TOTALLY AND HE IS NOW AT 96% RA AND MAINTAIN IT. WILL ENDORSE TO NEXT SHIFT TO KEEP THE HEAD OF THE BED UP AND USE THE SUCTION IF NEEDED. SON LEFT THE PLACE AFTER HE FELT HIS FATHER IS NOW BETTER, PATIENT BLOOD SUGAR WAS 114MG/DL OR NO COVERAGE. WILL CONTINUE TO MONITOR AND WILL ENDORSE TO NEXT SHIFT.
[2017-08-08 20:00] VITALS: BP_SYST 126
[2017-08-08] MEDS: cefTRIAXone 1 GM in D5W 50 ML IV SCH (20:00)
--- NOTE | 2017-08-08 20:00 | NUR ---
Initial Notes Received patient resting in bed, awake, alert, British speaking. Patient appears in no acute distress or pain at this time. Vital signs stable. Breathing is even and unlabored. PICC line patent/clean/dry. Patient tolerating tube feeding, HOB elevated. Gonzalez draining to gravity. Needs addressed. Educated patient regarding use of call light for assistance and fall precautions, patient seems unable to comprehend. Call light in hand, fall precautions in place, will continue to monitor. Patient is on contact isolation for scabies, sitter at bedside for safety.
[2017-08-08] MEDS: SENNOSIDES 8.6 MG TABLET GT SCH (20:34)
[2017-08-08] MEDS: ATORVASTATIN 10 MG TABLET GT SCH (20:34)
--- NOTE | 2017-08-08 22:00 | NUR ---
Nursing Notes Patient resting in bed, awake. Patient in no apparent distress or pain at this time. Breathing is even and unlabored. PICC site patent/clean/dry. HOB elevated, Gonzalez draining to gravity. Bed bath given to patient by ANESTHESIOLOGIST PHYSICIAN. Needs addressed. Fall precautions in place.
[2017-08-09] VITALS: BP_SYST 118
--- NOTE | 2017-08-09 | NUR ---
Nursing Notes Patient resting in bed with eyes closed. No acute distress noted, breathing is even and unlabored. PICC site patent/clean/dry. HOB elevated, myers draining to gravity. Call light in hand, fall precautions in place, sitter at bedside.
--- NOTE | 2017-08-09 02:04 | NUR ---
Nursing Notes Patient resting in bed with eyes closed. No acute distress noted, breathing is even and unlabored. PICC site patent/clean/dry. Call light in hand, fall precautions in place. Sitter remains at bedside for safety.
--- NOTE | 2017-08-09 02:30 | NUR ---
ROUNDS Patient resting quietly. No acute distress noted. Vital signs within normal range.
[2017-08-09] MEDS: IPRATROPIUM/ALBUTEROL SULFATE 3 ML AMPUL.NEB INH SCH ×6 (04:21→23:47)
--- NOTE | 2017-08-09 04:33 | NUR ---
Nursing Notes Patient resting in bed with eyes closed, easily aroused, no change in mentation. Patient in no acute distress or pain at this time. HOB elevated, tolerating tube feeding. Gonzalez draining to gravity. Call call light in hand, fall precautions in place. Will continue to monitor. Sitter at bedside.
[2017-08-09] MEDS: metroNIDAZOLE 500 mg/NS 100 ML IV SCH ×3 (05:24→21:53)
[2017-08-09] MEDS: INSULIN REGULAR, HUMAN 100 UNITS/ML, 10 ML VIAL (novoLIN R) SUBCUT PRN (05:30)
--- NOTE | 2017-08-09 06:42 | NUR ---
Nursing Notes Patient resting in bed with eyes closed, easily aroused, no change in mentation. Patient appears in no acute distress or pain at this time. Breathing is even and unlabored. PICC site patent/clean/dry, no S/S infection/infiltration noted. HOB elevated, patient tolerating tube feeding. Gonzalez draining yellow urine to gravity. All needs addressed throughout shift. Call light in hand, fall precautions in place. Will continue to monitor for changes and safety, and endorse all patient care/needs to oncoming nurse. Sitter at bedside for safety.
[2017-08-09 07:27] VITALS: BP_SYST 113
--- NOTE | 2017-08-09 07:50 | NUR ---
OPENING NOTE PATIENT AWAKE ALERT. NO DISTRESS NOTED. IV FLUIDS INFUSING WELL, TUBE FEEDING RUNNING AT THIS TIME. CALL LIGHT IS WITHIN REACH. BED ALARM ON IN THE LOWEST POSITION. SITTER IS PRESENT AT BEDSIDE. WILL MONITOR.
[2017-08-09] MEDS: CRANBERRY SUPPLEMENT GT SCH ×2 (09:00→20:15)
[2017-08-09] MEDS: PANTOPRAZOLE GRANULES PACKET 40 MG GT SCH (09:17)
[2017-08-09] MEDS: LACTOBACILLUS RHAMNOSUS GG 1 CAP CAPSULE GT SCH ×2 (09:17→20:14)
[2017-08-09] MEDS: ASPIRIN 81 MG TAB.CHEW GT SCH (09:17)
[2017-08-09] MEDS: HYDROCORTISONE SOD SUCC 100 MG/2 ML VIAL IVP SCH ×2 (09:17→20:13)
[2017-08-09] MEDS: POTASSIUM CHLORIDE 20 MEQ/PKT PACKET PO SCH ×2 (09:17→20:14)
[2017-08-09] MEDS: ASCORBIC ACID 500 MG TABLET GT SCH ×2 (09:17→20:14)
[2017-08-09] MEDS: MULTIVITS,CA,MINERALS/IRON/FA 1 TABLET GT SCH (09:17)
[2017-08-09] MEDS: DOCUSATE SODIUM 100 MG/10 ML UDC GT SCH ×2 (09:17→20:13)
[2017-08-09] MEDS: FERROUS SULFATE 300 MG/5 ML UDC GT SCH (09:17)
--- NOTE | 2017-08-09 09:17 | NUR ---
MEDS PATIENT MEDICATED AT THIS TIME VIA G- TUBE. TOLERATED WELL, NO DISTRESS NOTED. 10 ML RESIDUAL IN FEEDING- PT TOLERATING WELL CALL LIGHT WITHIN REACH. BED ALARM ON IN LOWEST POSITION. SITTER PRESENT WILL MONITOR.
--- NOTE | 2017-08-09 12:00 | NUR ---
BS CHECK- BLOOD SUGAR CHECKED AT THIS TIME-123 NO COVERAGE NEEDED
[2017-08-09] MEDS: POTASSIUM CHLORIDE 10 MEQ in 0.45% NACL 1,000 ML IV SCH (12:01)
[2017-08-09 12:05] VITALS: BP_SYST 111
--- NOTE | 2017-08-09 13:15 | NUR ---
DC Planning: Per melissa Hernandez @ [facility], the pt. was evaluated and clinically met AC requirement, the pt. is accepted at [facility] pending financial approval from her administration. -- CM to f/u, dr. Spaulding made aware.
--- NOTE | 2017-08-09 14:02 | NUR ---
Dr. Spaulding rounds updates given, stated ok to DAO jimenez, and will order for Benadryl due to patient being itchy.
--- NOTE | 2017-08-09 14:30 | NUR ---
PATIENT RESTING: Patient resting quietly. No acute distress noted. Vital signs within normal range.
[2017-08-09] MEDS: DIPHENHYDRAMINE HCL 50 MG CAPSULE GT SCH ×2 (15:13→20:14)
--- NOTE | 2017-08-09 15:49 | NUR ---
Nutrition F/U Admitting Diagnosis ASPIRATION PNEUMONIA Reviewed Pertinent Medical/Surgical Hx Medical Record Primary RN Patient Medical History Comment: PMH: CVA and encephalopathy, HYN, DM, dementia, S/P GT placement per MD notes. Pt also found w/: acute respiratory failure, possible aspiration pneumonia, Sepsis, encephalopathy, CVA, DM, HTN, hyponatremia, elevated troponin, R/O OR, chronia anemia per MD notes. Subjective Information Pt seen for follow up per protocol. Pt seen resting in bed at time of RD visit w/ sitter at bedside. Pt tried to get out of bed. +TF and IV infusing per MD orders. Per RN, TF well tolerated, residual of 10ml/hr this morning. Pt is for possible discharge to SNF today. Per EMR, last BM 08/09/17 x 1. Abd is soft and non-distended w/ active bowel sounds. I/O: 1420/800 +620ml, IV total intake: 700ml per 12 hrs. TF intake: 2160ml 08/08/2017. Pt is likely meeting adequate nutrition w/ TF intake. Pt is not appropriate for nutrition education. Current Diet Order/Nutrition Support Diabetisource AC at 60ml/hr FWF 150ml Q6H via GT x 3 day Patient/Significant Other Unable To Verbalize Education Provided Not Indicated Pertinent Medications senokot, solu-cortef, culturelle, theragran, levemir, iron, VIT C, KCl packet, colace Pertinent Labs K 3.8L, BG 138H, POC BG 156H, Alb 2.3L, H/H 10.4L/31L, WBC 9.1 WNL (improved), RBC 3.36L Height (Feet) 5 feet Height (Inches) 8.00 inches Weight (Pounds) 129 pounds BED SCALE WT: 130.4 lb (08/09/2017) --- might be skewed d/t multiple linens and blankets. Weight (Calculated Kilograms) 58.992361 kilograms Patient Weight 58.513 kg Body Mass Index 19.61 kg/m2 Usual Weight 117 lbs %UBW 110 %IBW 87 [place]/Adjusted Body Weight 154 lb/70 kg Recent Weight Change Yes - per EMR, 12 lb wt gain in 1 week. Weight Status Appropriate Last BM Aug 09, 2017 Usual Diet At Home Glucerna 1.2 at 70ml/hr x20hrs, FWF 40cc/hr x 20 hrs per pt chart Skin Integrity Comment: Sixto scale: 15; per RN notes: anterior L/R arm w/ rash/scabies; upper abdomen w/ rash/scabies Current % PO N/A on TF Estimated Energy Expenditure (kcals/day) 8999-2624 kcal/day (BEE x 1.2-1.5 CBW for Sepsis) Estimated Protein Required (g/day) 95-126 gm/day (1.5-2 gm/kg CBW for Sepsis) Estimated Fluid Required (l/day) 1.6 L/day (25ml/kg CBW for Geriatric maintenance) Problem/Etiology/Signs/Symptoms Increased nutritional needs related to metabolic demands as evidenced by estimated calorie and protein needs for Sepsis. *ongoing Expected Outcomes/Goals Monitor EN tolerance and intake w/ goal of pt meeting at least 75% of estimated nutritional needs, labs trending WNL, normal GI function, skin integrity/wt maintenance. Dietitian Recommendations *Recommend continuing Diabetisource AC at 60ml/hr, Prosource TID, FWF 85ml Q6H via GT Provides: 1908 kcal, 131 gm protein and 1270ml free water. Meets: 98% of upper end of estimated calorie needs and 104% of estimated protein needs. Follow Up High Risk: F/U in 2-3days
[2017-08-09 15:55] VITALS: BP_SYST 126
--- NOTE | 2017-08-09 15:59 | NUR ---
Dietitian Recommendations *Recommend continuing Diabetisource AC at 60ml/hr, Prosource TID, FWF 85ml Q6H via GT Provides: 1908 kcal, 131 gm protein and 1270ml free water. Meets: 98% of upper end of estimated calorie needs and 104% of estimated protein needs. Please see Nutrition F/U notes for details. FDC, RD
[2017-08-09] MEDS: DEXTROSE 50%-WATER 50 ML DISP.SYRIN IVP PRN (17:44)
--- NOTE | 2017-08-09 17:45 | NUR ---
bs checked at this time- 58 given dextrose as ordered. will reassess./
--- NOTE | 2017-08-09 18:30 | NUR ---
blood sugar reassessed- 157. will monitor.
--- NOTE | 2017-08-09 19:01 | NUR ---
closing note patient awake alert, tube feeding at this time, iv infusing well .all needs met through shift, will endorse care to material handler 2nd shift.
[2017-08-09 19:50] VITALS: BP_SYST 110
--- NOTE | 2017-08-09 19:50 | NUR ---
INITIAL NOTE AT INITIAL VISIT, PATIENT IS RESTING IN BED, STABLE, NO SIGNS OF RESPIRATORY DISTRESS. PATIENT VERBALIZES NAME AND KNOWS WHERE HE IS. PLAN OF CARE FOR THE EVENING IS COMMUNICATED TO THE PATIENT. PATIENT IV IS SECURE, PATENT, AND RUNNING. NG TUBE IS INTACT AND SECURE. PICC LINE IS SECURE AND INTACT. BED IS LOCKED, ALARMED, AND AT THE LOWEST LEVEL. ISOLATION PRECAUTIONS ARE TAKEN.
[2017-08-09] MEDS: ATORVASTATIN 10 MG TABLET GT SCH (20:14)
[2017-08-09] MEDS: cefTRIAXone 1 GM in D5W 50 ML IV SCH (20:14)
[2017-08-09] MEDS: SENNOSIDES 8.6 MG TABLET GT SCH (20:14)
[2017-08-09 23:40] VITALS: BP_SYST 134
--- NOTE | 2017-08-10 01:27 | NUR ---
NOTE PATIENT IS RESTING IN BED, STABLE, NO SIGNS OF RESPIRATORY DISTRESS. PATIENT VERBALIZED HE WAS COLD, EXTRA BLANKETS WERE PROVIDED FOR WARMTH. PATIENT IV IS SECURE, PATENT, AND RUNNING. NG TUBE IS INTACT AND SECURE. SOLANO IS SECURE, INTACT, AND DRAINING PER GRAVITY. PICC LINE IS SECURE AND INTACT. BED IS LOCKED, ALARMED, AND AT THE LOWEST LEVEL. ISOLATION PRECAUTIONS ARE TAKEN.
[2017-08-10] MEDS: IPRATROPIUM/ALBUTEROL SULFATE 3 ML AMPUL.NEB INH SCH ×6 (03:05→23:35)
--- NOTE | 2017-08-10 03:16 | NUR ---
NOTE PATIENT IS SLEEPING, STABLE, NO SIGNS OF RESPIRATORY DISTRESS. PATIENT IV IS SECURE, PATENT, AND RUNNING. NG TUBE IS INTACT AND SECURE. SOLANO IS SECURE, INTACT, AND DRAINING PER GRAVITY. PICC LINE IS SECURE AND INTACT. BED IS LOCKED, ALARMED, AND AT THE LOWEST LEVEL. ISOLATION PRECAUTIONS ARE TAKEN.
--- NOTE | 2017-08-10 05:06 | NUR ---
NOTE PATIENT IS SLEEPING, STABLE, NO SIGNS OF RESPIRATORY DISTRESS. PATIENT IV IS SECURE, PATENT, AND RUNNING. NG TUBE IS INTACT AND SECURE. SOLANO IS SECURE, INTACT, AND DRAINING PER GRAVITY. ACCUCHECK WAS TAKEN, NO INSULIN COVERAGE WAS NECESSARY PER SSI. PICC LINE IS SECURE AND INTACT. BED IS LOCKED, ALARMED, AND AT THE LOWEST LEVEL. ISOLATION PRECAUTIONS ARE TAKEN.
[2017-08-10] MEDS: metroNIDAZOLE 500 mg/NS 100 ML IV SCH ×3 (06:17→22:00)
[2017-08-10] MEDS: POTASSIUM CHLORIDE 10 MEQ in 0.45% NACL 1,000 ML IV SCH ×2 (06:19→18:04)
--- NOTE | 2017-08-10 06:58 | NUR ---
CLOSING NOTE PATIENT IS RESTING IN BED, STABLE, NO SIGNS OF RESPIRATORY DISTRESS. PATIENT IV IS SECURE, PATENT, AND RUNNING. NG TUBE IS INTACT AND SECURE. SOLANO IS SECURE, INTACT, AND DRAINING PER GRAVITY. PICC LINE IS SECURE AND INTACT. BED IS LOCKED, ALARMED, AND AT THE LOWEST LEVEL. ISOLATION PRECAUTIONS ARE TAKEN.
--- NOTE | 2017-08-10 07:30 | NUR ---
OPENING Notes, Received pt in bed, pt asleep, no s/s pain, no sob, no resp distress. Ivf infusing well. Right upper arm PICC intact and patent, no swelling. Safety precaution in place, bed alarm on, call light in reach. bed on low position, will cont to monitor.
[2017-08-10 08:08] VITALS: BP_SYST 111
[2017-08-10] MEDS: CRANBERRY SUPPLEMENT GT SCH ×2 (09:00→21:00)
[2017-08-10] MEDS: ASPIRIN 81 MG TAB.CHEW GT SCH (09:26)
[2017-08-10] MEDS: DIPHENHYDRAMINE HCL 50 MG CAPSULE GT SCH ×3 (09:26→21:59)
[2017-08-10] MEDS: ASCORBIC ACID 500 MG TABLET GT SCH ×2 (09:26→21:59)
[2017-08-10] MEDS: LACTOBACILLUS RHAMNOSUS GG 1 CAP CAPSULE GT SCH ×2 (09:26→21:59)
[2017-08-10] MEDS: MULTIVITS,CA,MINERALS/IRON/FA 1 TABLET GT SCH (09:26)
[2017-08-10] MEDS: FERROUS SULFATE 300 MG/5 ML UDC GT SCH (09:27)
[2017-08-10] MEDS: PANTOPRAZOLE GRANULES PACKET 40 MG GT SCH (09:27)
[2017-08-10] MEDS: HYDROCORTISONE SOD SUCC 100 MG/2 ML VIAL IVP SCH ×2 (09:27→22:00)
[2017-08-10] MEDS: POTASSIUM CHLORIDE 20 MEQ/PKT PACKET PO SCH ×2 (09:28→21:59)
[2017-08-10] MEDS: DOCUSATE SODIUM 100 MG/10 ML UDC GT SCH ×2 (09:38→21:59)
--- NOTE | 2017-08-10 09:38 | NUR ---
DAO Planning: F/U with Mary for bed assignment. Per Mary requesting scabies report prior to giving bed assignment. Ranjit requested ALFONSO Diaz to reassess the scabies status today. Addendum: 08/10/17 at 0949 by Rory Carrasco RN >> Per dr. El's note on 08/09/17 : Plan C/W IV ANTIBIOTICS FOR NOW. WILL REPEAT SCABIES SCRAPING IN ANOTHER FEW DAYS. C/W CONTACT ISOLATION. ([facility] result: Scabies seen on 08/07/17)
--- NOTE | 2017-08-10 10:11 | NUR ---
PT IN BED, PT IS AWAKE, APPEARS COMFORTABLE, NO SS PAIN, NO RESP DISTRESS, SAFETY PRECAUTION IN PLACE.BED ALARM ON WILL CONT TO MONITOR.
[2017-08-10] MEDS: INSULIN REGULAR, HUMAN 100 UNITS/ML, 10 ML VIAL (novoLIN R) SUBCUT PRN (12:05)
[2017-08-10 12:18] VITALS: BP_SYST 109
--- NOTE | 2017-08-10 14:00 | NUR ---
RN ROUNDS, REPOSITIONED PT, ORAL CARE DONE. NO S/S PAIN, NO SOB, NO RESP DISTRESS. SOLANO CATH INTACT, PT PULLING OUT THE SECUREMENT DEVICE. REPLACED SECUREMENT DEVISE, G-TUBE INFUSING WELL. PT KEPT IN SAFETY PRECAUTION. WILL CONTINUE TO MONITOR.
[2017-08-10 15:24] VITALS: BP_SYST 113
--- NOTE | 2017-08-10 16:48 | NUR ---
FAMILY AT BEDSIDE. UPDATE WITH PT'S STATUS.
--- NOTE | 2017-08-10 18:38 | NUR ---
CLOSING NOTES, PT HAS BEEN STABLE THE WHOLE SHIFT. DID NOT HEAR PT TALKING TODAY. FAMILY VISITED PT. THEY WERE UPDATED WITH PLAN OF CARE. PICC AND G-TUBE INTACT AND PATENT. LESS THAN 50 CC OF RESIDUAL NOTED FROM G-TUBE, WATER FLUSHES GIVEN. PT ON 25 MG BENADRYL , PT STILL SCRATCHING, SCABIES RASH ARE DRY. PT KEPT SAFE, BED ALARM ON AND BED IN LOW POSITION. CONTACT ISOLATION STILL ON. WILL ENDORSE TO NIGHT RN.
--- NOTE | 2017-08-10 19:40 | NUR ---
INITIAL NOTE AT INITIAL VISIT, PATIENT IS RESTING IN BED, STABLE, NO SIGNS OF RESPIRATORY DISTRESS. PLAN OF CARE FOR THE EVENING IS COMMUNICATED TO THE PATIENT. PICC LINE IS SECURE, INTACT, AND RUNNING IVF ORDERED. G TUBE IS INTACT WITH DIABETASOURCE RUNNING ORDERED. SOLANO IS SECURE, PATENT, AND INTACT. BED IS LOCKED, ALARMED, AND AT THE LOWEST SETTING. CALL LIGHT WITHIN REACH. ISOLATION PRECAUTIONS ARE TAKEN.
[2017-08-10 20:03] VITALS: BP_SYST 122
--- NOTE | 2017-08-10 21:34 | NUR ---
NOTE PATIENT IS RESTING IN BED, STABLE, NO SIGNS OF RESPIRATORY DISTRESS. PATIENT IS CLEANED, LINENS ARE CHANGED, AND POSITIONED FOR COMFORT. PICC LINE IS SECURE, INTACT, AND RUNNING IVF ORDERED. MEDICATIONS ARE ADMINISTERED AT THIS TIME, NO RESIDUAL IS NOTED PRIOR TO ADMINISTRATION, PATIENT TOLERATED WELL. G TUBE IS INTACT WITH DIABETASOURCE RUNNING ORDERED. SOLANO IS SECURE, PATENT, AND INTACT. BED IS LOCKED, ALARMED, AND AT THE LOWEST SETTING. CALL LIGHT WITHIN REACH. ISOLATION PRECAUTIONS ARE TAKEN.
[2017-08-10] MEDS: ATORVASTATIN 10 MG TABLET GT SCH (21:59)
[2017-08-10] MEDS: cefTRIAXone 1 GM in D5W 50 ML IV SCH (21:59)
[2017-08-10] MEDS: SENNOSIDES 8.6 MG TABLET GT SCH (21:59)
--- NOTE | 2017-08-10 23:21 | NUR ---
NOTE PATIENT IS RESTING IN BED, STABLE, NO SIGNS OF RESPIRATORY DISTRESS. PATIENT IS CLEANED, LINENS ARE CHANGED, AND POSITIONED FOR COMFORT. PICC LINE IS SECURE, INTACT, AND RUNNING IVF ORDERED. FREE WATER 150 ML IS GIVEN AT THIS TIME THROUGH G TUBE. G TUBE IS INTACT WITH DIABETASOURCE RUNNING ORDERED. SOLANO IS SECURE, PATENT, AND INTACT. BED IS LOCKED, ALARMED, AND AT THE LOWEST SETTING. CALL LIGHT WITHIN REACH. ISOLATION PRECAUTIONS ARE TAKEN.
[2017-08-11 00:05] VITALS: BP_SYST 123
--- NOTE | 2017-08-11 01:00 | NUR ---
RN ROUNDS PATIENT AWAKE, IN NO DISTRESS, BLOOD SUGAR THIS PM OF 114. NO INSULIN COVERAGE NEEDED, DUE ANTIBIOTICS ADMINISTERED. REPOSITIONED WITH PILLOW SUPPORT, FALL AND ISOLATION PRECAUTIONS MAINTAINED, BED ALARM ON, WILL CONTINUE TO MONITOR.
--- NOTE | 2017-08-11 02:15 | NUR ---
NOTE PATIENT IS SLEEPING, STABLE, NO SIGNS OF RESPIRATORY DISTRESS. PATIENT POSITIONED FOR COMFORT. PICC LINE IS SECURE, INTACT, AND RUNNING IVF ORDERED. G TUBE IS INTACT WITH DIABETASOURCE RUNNING ORDERED. SOLANO IS SECURE, PATENT, AND INTACT. BED IS LOCKED, ALARMED, AND AT THE LOWEST SETTING. CALL LIGHT WITHIN REACH. ISOLATION PRECAUTIONS ARE TAKEN.
--- NOTE | 2017-08-11 03:30 | NUR ---
RN ROUNDS PATIENT ASLEEP, RESPIRATIONS EVEN AND UNLABORED, ON ROOM AIR, FALL AND ISOLATION PRECAUTIONS MAINTAINED, BED ALARM ON, WILL CONTINUE TO MONITOR.
[2017-08-11] MEDS: IPRATROPIUM/ALBUTEROL SULFATE 3 ML AMPUL.NEB INH SCH ×6 (03:55→23:59)
[2017-08-11] MEDS: metroNIDAZOLE 500 mg/NS 100 ML IV SCH ×3 (06:58→21:19)
--- NOTE | 2017-08-11 07:03 | NUR ---
RN ROUNDS PATIENT RESTING QUIETLY, DUE ANTIBIOTICS ADMINISTERED, BLOOD SUGAR CHECK THIS AM OF 175. COVERED WITH INSULIN SLIDING SCALE PER MD ORDERS. PATIENT NEEDS ATTENDED TO. FALL AND ISOLATION PRECAUTIONS MAINTAINED, WILL CONTINUE TO MONITOR UNTIL REPORT GIVEN TO AM NURSE.
[2017-08-11] MEDS: INSULIN REGULAR, HUMAN 100 UNITS/ML, 10 ML VIAL (novoLIN R) SUBCUT PRN ×2 (07:09→17:29)
--- NOTE | 2017-08-11 07:50 | NUR ---
Opening Notes, Received pt in bed, pt asleep, no s/s pain, no sob, no resp distress. vitals wnl, afebrile. Ivf infusing well. Right upper arm PICC intact and patent, no swelling. G-tube site clean and dry, no dressing. No residual noted. Gonzalez intact, secured in place. Safety precaution in place, bed alarm on, call light in reach. bed on low position, will cont to monitor.
[2017-08-11 08:09] VITALS: BP_SYST 114
[2017-08-11] MEDS: CRANBERRY SUPPLEMENT GT SCH ×2 (09:00→20:33)
[2017-08-11] MEDS: DIPHENHYDRAMINE HCL 50 MG CAPSULE GT SCH ×3 (09:35→20:33)
[2017-08-11] MEDS: LACTOBACILLUS RHAMNOSUS GG 1 CAP CAPSULE GT SCH ×2 (09:36→20:32)
[2017-08-11] MEDS: PANTOPRAZOLE GRANULES PACKET 40 MG GT SCH (09:36)
[2017-08-11] MEDS: FERROUS SULFATE 300 MG/5 ML UDC GT SCH (09:36)
[2017-08-11] MEDS: POTASSIUM CHLORIDE 20 MEQ/PKT PACKET PO SCH ×2 (09:36→20:33)
[2017-08-11] MEDS: HYDROCORTISONE SOD SUCC 100 MG/2 ML VIAL IVP SCH ×2 (09:36→20:33)
[2017-08-11] MEDS: MULTIVITS,CA,MINERALS/IRON/FA 1 TABLET GT SCH (09:36)
[2017-08-11] MEDS: ASCORBIC ACID 500 MG TABLET GT SCH ×2 (09:36→20:33)
[2017-08-11] MEDS: ASPIRIN 81 MG TAB.CHEW GT SCH (09:36)
[2017-08-11] MEDS: DOCUSATE SODIUM 100 MG/10 ML UDC GT SCH ×2 (09:37→20:33)
--- NOTE | 2017-08-11 09:37 | NUR ---
DISCHARGE PLANNING - NEED 2ND SCRAPING FOR SCABIES FYI: Per Laboratory Report on skin scraping dated 08/08/2017: Positive (+) scabies Per Mary from [facility], pt has to be negative (-) for scabies before patient can be assigned a bed. Plan: Pt need repeat skin scraping for scabies.
--- NOTE | 2017-08-11 12:00 | NUR ---
RN notes, pt in bed, pt asleep, no s/s pain, no sob, no resp distress.Ivf infusing well. Right upper arm PICC intact and patent, no swelling. Safety precaution in place, bed alarm on, call light in reach. bed on low position, will cont to monitor.
[2017-08-11 12:06] VITALS: BP_SYST 137
--- NOTE | 2017-08-11 14:50 | NUR ---
OPENING Notes, Pt in bed, pt awake, pt's at bedside, no s/s pain, no sob, no resp distress.Ivf infusing well. Right upper arm PICC intact and patent, Safety precaution in place, bed alarm on, call light in reach. bed on low position, will cont to monitor. Addendum: 08/11/17 at 1613 by James Farah RN Correction: ALFONSO Rounding notes, not Opening notes.
[2017-08-11 15:06] VITALS: BP_SYST 137
[2017-08-11 16:07] VITALS: BP_SYST 105
--- NOTE | 2017-08-11 16:13 | NUR ---
RN Rounds Pt in bed, quite and appears sleeping, spouse at bed side. ivfluids and g-tube feeding infusing well. myers cath intact and secured in place. myers bag at foot of bed at all time. safety precaution in place. will cont to monitor.
[2017-08-11] MEDS: POTASSIUM CHLORIDE 10 MEQ in 0.45% NACL 1,000 ML IV SCH (17:43)
--- NOTE | 2017-08-11 18:20 | NUR ---
CLOSING NOTES PT'S SOLANO CATH LEAKING, GOT AN ORDER FROM DR DODD TO CHANGE IT, FR 18 USE, PT TOLERATED WELL. NO BLEEDING, SOLANO DRAINING WELL. AND SECURED WITH A SECUREMENT DEVICE. PT HAS BEEN STABLE THE WHOLE SHIFT, NO FEVER, NO SOB, NO RESP DISTRESS. DR DODD WAS HERE AND INFORMED THAT PT IS STILL SCRATCHING ON HIS RASHES. SAID PT IS ALREADY ON BENADRYL. PT'S WAS HERE AND UPDATED WITH PT'S STATUS AND PLAN OF CARE. PT KEPT SAFE. BED IN LOW POSITION, BED ALARM ON AT ALL TIME. WILL ENDORSE TO CIRCUS TRAINER.
--- NOTE | 2017-08-11 19:47 | NUR ---
Opening note Received patient awake, alert and oriented x1. No s/s of distress noted. Right upper arm PICC line intact and running fluids at prescribed rate. Gonzalez catheter noted and draining urine by gravity, no kinks noted. Patient's catheter reattached to secured device. Plan of care reviewed and patient reoriented to call light. Bed is down, locked, side rails up x3, call light within reach, bed alarm on. Will continue to monitor.
[2017-08-11 19:55] VITALS: BP_SYST 112
[2017-08-11] MEDS: SENNOSIDES 8.6 MG TABLET GT SCH (20:32)
[2017-08-11] MEDS: ATORVASTATIN 10 MG TABLET GT SCH (20:33)
[2017-08-11] MEDS: cefTRIAXone 1 GM in D5W 50 ML IV SCH (20:34)
--- NOTE | 2017-08-11 21:30 | NUR ---
Rounds Patient is resting in bed. No s/s of distress noted at this time. All lines and tubes intact. Bed is down, locked, side rails up x3, call light within reach, bed alarm on. Will continue to monitor.
--- NOTE | 2017-08-11 23:18 | NUR ---
Rounds Patient is resting in bed playing with blankets. No s/s of distress noted. Bed is down, locked, side rails up x2, call light within reach, bed alarm on. Will continue to monitor. Addendum: 08/12/17 at 0126 by Lubna Bell RN side rails up x3
[2017-08-11] MEDS: DEXTROSE 50%-WATER 50 ML DISP.SYRIN IVP PRN (23:44)
[2017-08-12] VITALS: BP_SYST 118
--- NOTE | 2017-08-12 00:09 | NUR ---
Low blood sugar of 67 Low blood sugar of 67. Patient given D50. Patient tolerated well. Bed is down, locked, side rails up x3, call light within reach. Will continue to monitor.
--- NOTE | 2017-08-12 01:26 | NUR ---
Rounds Patient is resting in bed with eyes closed. No s/s of respiratory distress noted. Bed is down, locked, side rails up x3, call light within reach, bed alarm on. Will continue to monitor.
[2017-08-12] MEDS: IPRATROPIUM/ALBUTEROL SULFATE 3 ML AMPUL.NEB INH SCH ×6 (03:30→22:56)
--- NOTE | 2017-08-12 03:30 | NUR ---
PICC line dressing changed PICC line dressing found half off of patient. PICC line dressing changed per hospital policy, sterile technique maintained. No swelling, redness, or signs of infection noted. Length of PICC line to insertion site is 3cm. New dressing is dry and intact. Patient tolerated well. No complications. Will continue to monitor site. Bed is down, locked, side rails up x3, call light within reach, bed alarm on. Will continue to monitor patient.
--- NOTE | 2017-08-12 05:29 | NUR ---
Rounds Patient is resting calmly in bed. No s/s of distress noted. Bed is down, locked, side rails up x3, call light within reach, bed alarm on. Will continue to monitor.
--- NOTE | 2017-08-12 06:25 | NUR ---
Closing note Patient is quietly resting in bed. Patient remains confused. No s/s of distress noted at this time. Right upper arm PICC line intact, flushes easily with good blood return. Gonzlaez catheter intact and draining urine by gravity, no kinks noted. Patient's catheter reattached to secure device. G-tube dressing changed. Patient tolerated well. All needs met and anticipated by [facility] nurses. Bed is down, locked, side rails up x3, call light within reach, bed alarm on. Will endorse to day shift nurse.
--- NOTE | 2017-08-12 07:35 | NUR ---
Initial Note Received report from the night nurse Lubna. Pt AOX1. No signs of distress noted at this time. Bed is at lowest position with bed alarm on. Call light within reach.
[2017-08-12 07:50] VITALS: BP_SYST 117
[2017-08-12] MEDS: CRANBERRY SUPPLEMENT GT SCH ×2 (09:00→21:00)
[2017-08-12] MEDS: DIPHENHYDRAMINE HCL 50 MG CAPSULE GT SCH ×3 (10:12→21:28)
[2017-08-12] MEDS: DOCUSATE SODIUM 100 MG/10 ML UDC GT SCH ×2 (10:12→21:29)
[2017-08-12] MEDS: FERROUS SULFATE 300 MG/5 ML UDC GT SCH (10:12)
[2017-08-12] MEDS: LACTOBACILLUS RHAMNOSUS GG 1 CAP CAPSULE GT SCH ×2 (10:12→21:28)
[2017-08-12] MEDS: MULTIVITS,CA,MINERALS/IRON/FA 1 TABLET GT SCH (10:13)
[2017-08-12] MEDS: ASPIRIN 81 MG TAB.CHEW GT SCH (10:13)
[2017-08-12] MEDS: POTASSIUM CHLORIDE 20 MEQ/PKT PACKET PO SCH ×2 (10:13→21:29)
[2017-08-12] MEDS: ASCORBIC ACID 500 MG TABLET GT SCH ×2 (10:13→21:27)
[2017-08-12] MEDS: PANTOPRAZOLE GRANULES PACKET 40 MG GT SCH (10:13)
[2017-08-12] MEDS: HYDROCORTISONE SOD SUCC 100 MG/2 ML VIAL IVP SCH ×2 (10:13→21:30)
--- NOTE | 2017-08-12 11:40 | NUR ---
RN Rounds Pt resting and no signs of distress noted at this time. Bed is at lowest position with bed alarm on. Call light within reach.
[2017-08-12 12:44] VITALS: BP_SYST 124
[2017-08-12] MEDS: POTASSIUM CHLORIDE 10 MEQ in 0.45% NACL 1,000 ML IV SCH (14:57)
[2017-08-12] MEDS ORDERED: PERMETHRIN 60 GM TOPICAL CREAM (ELIMITE) TP ONE (15:00)
--- NOTE | 2017-08-12 15:40 | NUR ---
RN Rounds Pt awake and does not show any signs of distress at this time. Bed is at lowest position with bed alarm on. Call light within reach.
[2017-08-12 17:10] VITALS: BP_SYST 126
--- NOTE | 2017-08-12 19:00 | NUR ---
Closing Note Pt AOX1-2. No sign of distress noted at this time. Bed is at lowest position with bed alarm on. Call light within reach. Pt positive for scabies. Elimite applied as ordered at 1600 hrs.
--- NOTE | 2017-08-12 19:10 | NUR ---
Opening note Received patient awake, alert and oriented x1. Patient is hanging body over bed rail. Right upper arm PICC line intact and had been reinforced by day shift nurse due to patient picking at it. PICC line wrapped lightly to prevent patient from pulling at it tonight. PICC flushes easily with good blood return and is running fluids at prescribed rate. Gonzalez catheter in place and draining urine by gravity, no kinks noted. Patient's catheter reattached to secured device. Plan of care reviewed and patient reoriented to call light. Bed is down, locked, side rails up x3, call light within reach, bed alarm on. Will continue to monitor.
[2017-08-12 20:10] VITALS: BP_SYST 116
--- NOTE | 2017-08-12 21:07 | NUR ---
Rounds Patient is resting quietly in bed. No s/s of distress noted. Bed is down, locked, side rails up x3, call light within reach, bed alarm on. Will continue to monitor.
[2017-08-12] MEDS: ATORVASTATIN 10 MG TABLET GT SCH (21:26)
[2017-08-12] MEDS: SENNOSIDES 8.6 MG TABLET GT SCH (21:28)
[2017-08-12] MEDS: cefTRIAXone 1 GM in D5W 50 ML IV SCH (21:29)
--- NOTE | 2017-08-12 23:09 | NUR ---
Rounds Patient is resting in bed with eyes closed. No s/s of distress noted at this time. Bed is down, locked, side rails up x3, call light within reach, bed alarm on. Will continue to monitor.
[2017-08-13 00:04] VITALS: BP_SYST 129
[2017-08-13] MEDS: INSULIN REGULAR, HUMAN 100 UNITS/ML, 10 ML VIAL (novoLIN R) SUBCUT PRN (00:43)
--- NOTE | 2017-08-13 01:03 | NUR ---
Rounds Patient is resting in bed with eyes closed. No s/s of distress. All tubes and lines intact. Bed is down, locked, side rails up x3, call light within reach, bed alarm on. Will continue to monitor.
[2017-08-13] MEDS: IPRATROPIUM/ALBUTEROL SULFATE 3 ML AMPUL.NEB INH SCH ×4 (02:27→20:09)
--- NOTE | 2017-08-13 02:59 | NUR ---
Rounds Patient is resting in bed. No s/s of distress noted. Bed is down, locked, side rails up x3, call light within reach, bed alarm on. Will continue to monitor.
--- NOTE | 2017-08-13 04:00 | NUR ---
G-tube dressing changed/AM care preformed Patient found biting and pulling at tube feeding and tube feeding all over the bed. G-tube dressing changed. AM care preformed. Patient tolerated well. All tubes and lines are intact and running at prescribed rate. Bed is down, locked, side rails up x3, call light within reach, bed alarm on. Will continue to monitor.
--- NOTE | 2017-08-13 05:30 | NUR ---
Rounds Patient is resting quietly in bed. No s/s of distress noted at this time. Bed is down, locked, side rails up x3, call light within reach, bed alarm on. Will continue to monitor.
--- NOTE | 2017-08-13 06:31 | NUR ---
Closing note Patient is resting in bed. Patient remains confused. No s/s of distress. Right upper arm PICC line intact and running fluids at prescribed rate. Gonzalez catheter intact and draining urine by gravity, no kinks noted. G-tube intact, no further leaking noted. All needs met and anticipated by [facility]. Bed is down, locked, side rails up x3, call light within reach, bed alarm on. Will endorse to day shift nurse.
[2017-08-13 06:50] LABS: BASOPHILS % (AUTO) 0.3 % (0.0-2.0); EOSINOPHILS # (AUTO) 0.2 K/uL (0.0-0.4); EOSINOPHILS % (AUTO) 3.9 % (0.0-4.0); HEMATOCRIT 34.3 % (36-54); HEMOGLOBIN 11.2 g/dL (14.0-18.0); LYMPHOCYTES # (AUTO) 1.2 K/uL (1.0-5.5); LYMPHOCYTES % (AUTO) 19.8 % (20.5-51.5); MEAN CORPUSCULAR HEMOGLOBIN 31 pg (27-31); MEAN CORPUSCULAR HGB CONC 33 % (32-36); MEAN CORPUSCULAR VOLUME 93 fL (79.0-98.0); MONOCYTES # (AUTO) 0.5 K/uL (0.0-1.0); MONOCYTES % (AUTO) 9.1 % (1.7-9.3); NEUTROPHILS # (AUTO) 4.1 K/uL (1.8-7.7); NEUTROPHILS % (AUTO) 66.9 % (40.0-70.0); PLATELET COUNT (AUTO) 301 K/uL (130-430); RED BLOOD CELL COUNT(AUTO) 3.67 MIL/uL (4.2-6.2); RED CELL DISTRIBUTION WIDTH 15.6 % (9.0-15.0)
[2017-08-13 07:10] LABS: ANION GAP 5 (5-15); CALCIUM 8.9 mg/dL (8.4-11.0); CHLORIDE 108 mmol/L (98-107); CREATININE 0.55 mg/dL (0.55-1.30); GLUCOSE 123 mg/dL (70-99); POTASSIUM 3.9 mmol/L (3.5-5.1); SODIUM SERUM 139 mmol/L (136-145); UREA NITROGEN, BLOOD 18 mg/dL (8-21)
--- NOTE | 2017-08-13 07:30 | NUR ---
Initial Note Received report from the night nurse Lubna. Pt AOX1-2. No signs of distress noted at this time. Bed is at lowest position with bed alarm on. Call light within reach.
[2017-08-13 07:40] VITALS: BP_SYST 109
[2017-08-13] MEDS: CRANBERRY SUPPLEMENT GT SCH ×2 (09:00→21:00)
[2017-08-13] MEDS: FERROUS SULFATE 300 MG/5 ML UDC GT SCH (09:41)
[2017-08-13] MEDS: DOCUSATE SODIUM 100 MG/10 ML UDC GT SCH ×2 (09:42→22:05)
[2017-08-13] MEDS: ASPIRIN 81 MG TAB.CHEW GT SCH (09:43)
[2017-08-13] MEDS: DIPHENHYDRAMINE HCL 50 MG CAPSULE GT SCH ×3 (09:43→22:04)
[2017-08-13] MEDS: POTASSIUM CHLORIDE 20 MEQ/PKT PACKET PO SCH ×2 (09:43→22:04)
[2017-08-13] MEDS: MULTIVITS,CA,MINERALS/IRON/FA 1 TABLET GT SCH (09:43)
[2017-08-13] MEDS: HYDROCORTISONE SOD SUCC 100 MG/2 ML VIAL IVP SCH ×2 (09:43→21:00)
[2017-08-13] MEDS: ASCORBIC ACID 500 MG TABLET GT SCH ×2 (09:43→22:04)
[2017-08-13] MEDS: LACTOBACILLUS RHAMNOSUS GG 1 CAP CAPSULE GT SCH ×2 (09:43→22:04)
[2017-08-13] MEDS: POTASSIUM CHLORIDE 10 MEQ in 0.45% NACL 1,000 ML IV SCH (09:44)
[2017-08-13] MEDS: PANTOPRAZOLE GRANULES PACKET 40 MG GT SCH (09:44)
--- NOTE | 2017-08-13 11:25 | NUR ---
RN Round Pt resting and no signs of distress noted at this time. Bed is at lowest position with bed alarm on. Call light within reach.
[2017-08-13 12:00] VITALS: BP_SYST 116
--- NOTE | 2017-08-13 12:00 | NUR ---
PICC Line Dressing Change Pt removed dressing and pull out the picc line catheter about 13 cm. Picc line flused with NS and positive for blood return both ports. New dressing applied with aseptic technique.
--- NOTE | 2017-08-13 13:14 | NUR ---
Nutrition F/U Admitting Diagnosis ASPIRATION PNEUMONIA Reviewed Pertinent Medical/Surgical Hx Medical Record Primary RN Patient Medical History Comment: PMH: CVA and encephalopathy, HTN, DM, dementia, S/P GT placement per MD notes. Pt also found w/: acute respiratory failure, possible aspiration pneumonia, Sepsis, encephalopathy, CVA, DM, HTN, hyponatremia, elevated troponin, R/O NE, chronia anemia per MD notes. Subjective Information Pt seen for follow up per protocol. Pt seen resting in bed at time of RD visit. Per RN, TF well tolerated w/ no residual this morning. Per MD notes, pt is still positive for scabies. Per Cardiology consultation notes, pt w/ possible muscle wasting and muscle atrophy evidence for R-sided hyperreflexia. Per EMR, abd is soft and non-distended w/ active bowel sounds. I/O: 2640/1100 +1540ml, IV total intake: 1200ml per 12 hrs. TF intake 1570ml per 24 hrs 08/12/17. Pt is awaiting transfer to [facility]. Current TF provides 1728 kcal, 86 gm protein and 1180ml free water. Meets: 89% of upper end of calorie needs and 68% of upper end of protein needs. Pt may benefit from additional protein in TF formula, RD suggest Prosource w/ GT feeding. Pt is not yet meeting adequate nutrition w/ TF intake. Pt is not appropriate for nutrition education. Current Diet Order/Nutrition Support Diabetisource AC at 60ml/hr FWF 150ml Q6H via GT x 7 days Patient/Significant Other Unable To Verbalize Education Provided Not Indicated Pertinent Medications senokot, solu-cortef, culturelle, theragran, levemir, iron, VIT C, KCl packet, colace Pertinent Labs K 3.9 WNL (improved) , BG 123H, POC BG 108H, H/H 11.2L/34.3L, WBC 6 WNL (improved), RBC 3.67L Alb 2.3L (08/07/17) Height (Feet) 5 feet Height (Inches) 8.00 inches Weight (Pounds) 129 pounds BED SCALE WT: 130.4 lb (08/09/2017) --- might be skewed d/t multiple linens and blankets. Weight (Calculated Kilograms) 58.851035 kilograms Patient Weight 58.513 kg Body Mass Index 19.61 kg/m2 Usual Weight 117 lbs %UBW 110 %IBW 87 [place]/Adjusted Body Weight 154 lb/70 kg Recent Weight Change Yes - per EMR, 12 lb wt gain in 1 week. Weight Status Appropriate Last BM Aug 09, 2017 Usual Diet At Home Glucerna 1.2 at 70ml/hr x20hrs, FWF 40cc/hr x 20 hrs per pt chart Skin Integrity Comment: Sixto scale: 17; per RN notes: anterior L/R arm w/ rash/scabies; upper abdomen w/ rash/scabies Current % PO N/A on TF Estimated Energy Expenditure (kcals/day) 9363-0072 kcal/day (BEE x 1.2-1.5 CBW for Sepsis) Estimated Protein Required (g/day) 95-126 gm/day (1.5-2 gm/kg CBW for Sepsis) Estimated Fluid Required (l/day) 1.6 L/day (25ml/kg CBW for Geriatric maintenance) Problem/Etiology/Signs/Symptoms Increased nutritional needs related to metabolic demands as evidenced by estimated calorie and protein needs for Sepsis. *ongoing Expected Outcomes/Goals Monitor EN tolerance and intake w/ goal of pt meeting at least 75% of estimated nutritional needs, labs trending WNL, normal GI function, skin integrity/wt maintenance. Dietitian Recommendations *Recommend Diabetisource AC at 60ml/hr, Prosource TID, FWF 85ml Q6H via GT Provides: 1908 kcal, 131 gm protein and 1270ml free water. Meets: 98% of upper end of estimated calorie needs and 104% of estimated protein needs. Follow Up High Risk: F/U in 2-3days
--- NOTE | 2017-08-13 13:24 | NUR ---
Dietitian Recommendations *Recommend Diabetisource AC at 60ml/hr, Prosource TID, FWF 85ml Q6H via GT Provides: 1908 kcal, 131 gm protein and 1270ml free water. Meets: 98% of upper end of estimated calorie needs and 104% of estimated protein needs. Please see Nutrition F/U for details. ALEXANDER, RD
--- NOTE | 2017-08-13 14:16 | NUR ---
Dc Planning: snf placement: [facility], tele status : pending Iso/Scabie bed. >> Faxed referral to [facility]-- request pt. transferring back , needs isolation bed for scabies.
--- NOTE | 2017-08-13 14:52 | NUR ---
DC Planning: [facility] pt[facility] to room [facility] per [facility]. The bed is available any time. RN to report # [phone].
--- NOTE | 2017-08-13 15:09 | NUR ---
Discharge Planning: BLS Transportation has been set up with [facility] ([phone]) pharmacy picking technician scheduled for 6:00pm. Packet has been taken to the nurses station. Pt will be going to room 38 at [facility] ([phone]).
--- NOTE | 2017-08-13 15:25 | NUR ---
RN Round Pt resting and no signs of distress noted at this time. Bed is at lowest position with bed alarm on. Call light within reach.
[2017-08-13 15:54] VITALS: BP_SYST 116
[2017-08-13] MEDS ORDERED: IVERMECTIN 3 MG TABLET PO ONE (16:45)
[2017-08-13] MEDS ORDERED: PERMETHRIN 60 GM TOPICAL CREAM (ELIMITE) TP ONE (16:45)
--- NOTE | 2017-08-13 16:55 | NUR ---
Called Dr. Spaulding As per is ok to remove myers catheter, and discharge pt with the same medication list as is showing on EMAR. But to leave in place the PICC line. Addendum: 08/13/17 at 1857 by Hunter Kilpatrick RN Dr. Spaulding ordered to removed the PICC line as well.
--- NOTE | 2017-08-13 18:58 | NUR ---
Closing Note Pt AOX1-2. No signs of distress noted at this time. Bed is at lowest position with bed alarm on. Call light within reach. Pt has been discharged to [facility] to room 38 Report given to Amrita @ 0894. [facility] was schedule to fruit picker machine operator the pt at 1800 hrs, but they're running late. They called and advised that they will be here within 1. PICC line, and Gonzalez removed as ordered by Dr. Spaulding. Dr. El ordered another Elimite treatment, but after getting aware that the pt was getting discharged to [facility], he ordered me to cancel the order.
--- NOTE | 2017-08-13 19:25 | NUR ---
OPENING NOTE Received report from day shift nurse. Pt resting in bed awake, alert, oriented x1. Breathing unlabored and even. No signs of distress, no needs at this time. Fall, safety, contact precautions in place. Contact for scabies. Bed in lowest position, brake on, alarm on, call light within reach. Pt to be d/c tonight. Waiting on [facility] ambulance to transport pt to [facility]. Ann is the contact at . Discharge packet complete per Hunter day shift RN. Will continue to monitor pt until d/c.
--- NOTE | 2017-08-13 20:00 | NUR ---
Ann from [facility] called. Hunter (day shift RN) transferred call to al. Ann asked for scabies reports. Spoke to Cole (admission discharge rn) and she said it was ok to print off the scabies lab reports to include in pt discharge packet. Printed and put in packet.
--- NOTE | 2017-08-13 20:31 | NUR ---
Called [facility] to see when they will be here for transport since they were supposed to arrive at 6pm. Spoke to Abrahan, he stated that ambulance will be here in 30 min (21:00). Called [facility] and spoke to Ann. Informed her that ambulance will be here in 30min to pickle solution maker pt. Also told her that I included the scabies reports in the pt's packet.
--- NOTE | 2017-08-13 21:33 | NUR ---
Ambulance still has not arrived. Called [facility], spoke to Antoni. Stated that ambulance is at [place] dropping off a patient and will be back for this patient once they are finished.
[2017-08-13] MEDS: ATORVASTATIN 10 MG TABLET GT SCH (22:04)
[2017-08-13] MEDS: SENNOSIDES 8.6 MG TABLET GT SCH (22:04)
--- NOTE | 2017-08-13 22:20 | NUR ---
Could not administer IV medication due to IV site being removed during day shift since pt was supposed to be d/c at 18:00. 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 Could not administer pt's own mediation (cranberry supplement) since there was no more available.
--- NOTE | 2017-08-13 22:49 | NUR ---
D/C Patient Amulance given medication reconciliation form, D/C instructions and discharge packet to take to [facility]. Report given to ambulance. Exit Care provided. Patient in stable condition, ID band removed. All belongings sent with patient. Spoke to Ann at [facility] to let her know ambulance was here to transport patient.
== END 2017-08-13 22:48 | DRG 871 ==
LOC: SED 18:28 → STU 20:44 → SIC 21:31 → STU 08-06 15:00 → SMU 08-09 10:35
PROVIDERS: ADMIT Family Medicine; ATTEND Family Medicine
DX: A41.9 Sepsis, unspecified organism (principal); G93.40 Encephalopathy, unspecified; J96.00 Acute respiratory failure, unspecified whether with hypoxia or hypercapnia; J69.0 Pneumonitis due to inhalation of food and vomit; R65.21 Severe sepsis with septic shock; J15.9 Unspecified bacterial pneumonia; J96.20 Acute and chronic respiratory failure, unspecified whether with hypoxia or hypercapnia; E87.1 Hypo-osmolality and hyponatremia; B86 Scabies; E11.9 Type 2 diabetes mellitus without complications; D64.9 Anemia, unspecified; I10 Essential (primary) hypertension; E78.5 Hyperlipidemia, unspecified; F03.90 Unspecified dementia, unspecified severity, without behavioral disturbance, psychotic disturbance, mood disturbance, and anxiety; I49.9 Cardiac arrhythmia, unspecified; Y95 Nosocomial condition; I69.351 Hemiplegia and hemiparesis following cerebral infarction affecting right dominant side; Z93.1 Gastrostomy status; Z93.0 Tracheostomy status; Z95.0 Presence of cardiac pacemaker
CPT/HCPCS: 36415; 36600; 71045; 80048; 80053; 81003; 82803-TC; 82962; 83605; 83880; 84484; 85007; 85025; 85027; 85610-TC; 85730-TC; 87040-TC; 87081; 87086; 87210-TC; 93005; 93306; 94640; 94760; 96365; 99285; C1751; C1769; J0696; J1720; J1815; J2543; J3370; J3480; J3490; J7030; J7050; J7060; Q0163

== ENCOUNTER 2017-08-23 02:52 | Inpatient (IN) | payer OTHER, MEDICARE ==
[~2017-08-23] VITALS: Ht 165.1 cm; Wt 59.6 kg
[2017-08-23] VITALS (18 sets, daily range): BP systolic 93–128
[~2017-08-23 02:52] MED LIST changes: +ACET-1010 GT; -CRAN1CAP5 GT; +CRAN450T9 GT; +SENN8.6T19 GT; -SENN8.8S12 GT
[2017-08-23] MEDS ORDERED: NACL 0.9% 1,000 ML IV ONE ×2 (02:59→04:42)
[2017-08-23] MEDS ORDERED: IPRATROPIUM BROM 0.5 MG/2.5 ML VIAL.NEB (ATROVENT) IH ONE (03:00)
[2017-08-23] MEDS ORDERED: LevALBUTEROL HCL 1.25 MG/0.5 ML *CONC.* VIAL.NEB (XOPENEX CONC.) INH ONE ×2 (03:00→05:45)
[2017-08-23] MEDS ORDERED: SODIUM CL 3% FOR INHALATION 15 ML VIAL.NEB INH ONE (03:00)
[2017-08-23 03:39] LABS: BILIRUBIN,URINE NEGATIVE (NEGATIVE); BLOOD, URINE NEGATIVE (NEGATIVE); CLARITY/URINE CLEAR (CLEAR); COLOR,URINE YELLOW (YELLOW); GLUCOSE,URINE NEGATIVE (NEGATIVE); KETONES,URINE NEGATIVE (NEGATIVE); LEUKOCYTE ESTERASE ,URINE TRACE (NEGATIVE); NITRITE, URINE NEGATIVE (NEGATIVE); PROTEIN URINE TRACE (NEGATIVE); UROBILINOGEN,URINE 0.2 (0.2-1.0)
[2017-08-23 03:45] LABS: BASOPHILS # (AUTO) 0.1 K/uL (0.0-0.2); BASOPHILS % (AUTO) 0.6 % (0.0-2.0); EOSINOPHILS % (AUTO) 0.2 % (0.0-4.0); HEMATOCRIT 41.4 % (36-54); HEMOGLOBIN 13.8 g/dL (14.0-18.0); LYMPHOCYTES % (AUTO) 5.4 % (20.5-51.5); MEAN CORPUSCULAR HEMOGLOBIN 31 pg (27-31); MEAN CORPUSCULAR HGB CONC 33 % (32-36); MEAN CORPUSCULAR VOLUME 92 fL (79.0-98.0); MONOCYTES % (AUTO) 5.3 % (1.7-9.3); NEUTROPHILS # (AUTO) 16.4 K/uL (1.8-7.7); NEUTROPHILS % (AUTO) 88.5 % (40.0-70.0); PLATELET COUNT (AUTO) 342 K/uL (130-430); RED CELL DISTRIBUTION WIDTH 15.8 % (9.0-15.0); WHITE BLOOD COUNT (AUTO) 18.5 K/uL (4.8-10.8)
[2017-08-23 03:50] LABS: BACTERIA,URINE RARE /HPF (None Seen); RBC,URINE 0-3 /HPF (0-3); YEAST,URINE Moderate /HPF (None Seen)
[2017-08-23 03:51] LABS: ANION GAP 6 (5-15); CALCIUM 9.6 mg/dL (8.4-11.0); CHLORIDE 100 mmol/L (98-107); CREATININE 0.68 mg/dL (0.55-1.30); GLUCOSE 131 mg/dL (70-99); POTASSIUM 4.5 mmol/L (3.5-5.1); SODIUM SERUM 134 mmol/L (136-145); UREA NITROGEN, BLOOD 38 mg/dL (8-21)
[2017-08-23] MEDS ORDERED: ALBU2.5V7 INH (03:51)
[2017-08-23] MEDS ORDERED: ACET325T53 GT (03:51)
[2017-08-23 03:53] LABS: PROTHROMBIN TIME 10.6 SECS (9.5-12.5)
[2017-08-23 03:56] LABS: ALANINE AMINOTRANSFERASE 49 U/L (12-78); ALBUMIN 2.7 g/dL (3.4-4.8); ASPARTATE AMINOTRANSFERASE 37 U/L (10-37); LIPASE 74 U/L (73-393); TOTAL BILIRUBIN 0.6 mg/dL (0.0-1.0)
[2017-08-23] MEDS ORDERED: PIPERACILLIN/TAZO 3.375 GM in NS 50 ML IV ONE (04:00)
[2017-08-23] MEDS ORDERED: PIPERACILLIN/TAZOBACTAM 3.375 GM/VIAL (ZOSYN) IV ONE (04:39)
[2017-08-23] MEDS ORDERED: POTASSIUM CHLORIDE 20 MEQ in D5/0.45 NS 1,000 ML IV SCH (05:21)
[2017-08-23] MEDS ORDERED: ASPIRIN 81 MG TABLET(ECOTRIN) ONE (06:09)
[2017-08-23] MEDS ORDERED: ASPIRIN 81 MG TABLET(ECOTRIN) PO ONE (06:15)
[2017-08-23] MEDS ORDERED: NOREPINEPHRINE 4 MG/4 ML VIAL IV ONE ×2 (06:29)
[2017-08-23] MEDS ORDERED: NOREPINEPHRINE BITARTRATE 4 MG in D5W 246 ML IV PRN (06:30)
[2017-08-23] MEDS ORDERED: MILK OF MAGNESIA 30 ML UDC PO SCH (08:00)
[2017-08-23] MEDS ORDERED: ACETAMINOPHEN 650 MG/20.3 ML UDC GT PRN ×3 (08:00)
[2017-08-23] MEDS ORDERED: ALBUTEROL SULFATE 0.083% 2.5 MG/3 ML VIAL.NEB INH PRN (08:00)
[2017-08-23] MEDS ORDERED: MILK OF MAGNESIA 30 ML UDC PO PRN (08:00)
[2017-08-23] MEDS ORDERED: NITROGLYCERIN 0.4 MG TAB.SUBL SL PRN (08:00)
[2017-08-23] MEDS: DOCUSATE SODIUM 100 MG/10 ML UDC PO SCH (08:52)
[2017-08-23] MEDS: FERROUS SULFATE 300 MG/5 ML UDC GT SCH (08:52)
[2017-08-23] MEDS: ASPIRIN 81 MG TAB.CHEW GT SCH (08:52)
[2017-08-23] MEDS: ASCORBIC ACID 500 MG TABLET GT SCH ×2 (08:52→20:24)
[2017-08-23] MEDS: PANTOPRAZOLE SODIUM 40 MG/VIAL (PROTONIX) IVP SCH (08:53)
[2017-08-23] MEDS: POTASSIUM CHLORIDE 20 MEQ in D5NS 1,000 ML IV SCH ×2 (08:53→17:06)
[2017-08-23] MEDS ORDERED: VANCOMYCIN HCL 1,000 MG in NS 250 ML IV SCH (09:00)
[2017-08-23] MEDS: PIPERACILLIN/TAZO 3.375/DEX-IS 50 ML IV SCH ×3 (11:52→23:54)
[2017-08-23] MEDS: INSULIN REGULAR, HUMAN 100 UNITS/ML, 10 ML VIAL (novoLIN R) SUBCUT PRN ×3 (11:55→23:56)
[2017-08-23] MEDS: LevALBUTEROL HCL 1.25 MG/0.5 ML *CONC.* VIAL.NEB (XOPENEX CONC.) INH SCH ×2 (13:28→20:42)
[2017-08-23] MEDS: NOREPINEPHRINE BITARTRATE 4 MG in NS 246 ML IV PRN ×2 (14:16→17:06)
[2017-08-23] MEDS ORDERED: FLUCONAZOLE 100 mg/ NS 50 ML IV ONE (17:00)
[2017-08-23] MEDS: ENOXAPARIN SODIUM 30 MG/0.3 ML SYRINGE SUBCUT SCH (20:23)
[2017-08-23] MEDS: SENNOSIDES 8.6 MG TABLET GT SCH (20:24)
[2017-08-23] MEDS: ATORVASTATIN 10 MG TABLET GT SCH (20:24)
[2017-08-24] VITALS (24 sets, daily range): BP systolic 92–146
[2017-08-24] MEDS: LevALBUTEROL HCL 1.25 MG/0.5 ML *CONC.* VIAL.NEB (XOPENEX CONC.) INH SCH ×4 (01:23→19:36)
[2017-08-24] MEDS: POTASSIUM CHLORIDE 20 MEQ in D5NS 1,000 ML IV SCH ×3 (02:16→17:10)
[2017-08-24] MEDS: HYDROcodone/ACETAMIN 5-325 MG TAB (NORCO/ VICODIN) GT PRN (03:24)
[2017-08-24] MEDS: PIPERACILLIN/TAZO 3.375/DEX-IS 50 ML IV SCH ×3 (05:08→17:46)
[2017-08-24] MEDS: INSULIN REGULAR, HUMAN 100 UNITS/ML, 10 ML VIAL (novoLIN R) SUBCUT PRN ×3 (05:11→17:44)
[2017-08-24 06:06] LABS: EOSINOPHILS # (AUTO) 0.1 K/uL (0.0-0.4); EOSINOPHILS % (AUTO) 1.4 % (0.0-4.0); LYMPHOCYTES # (AUTO) 0.5 K/uL (1.0-5.5); LYMPHOCYTES % (AUTO) 5.9 % (20.5-51.5); MEAN CORPUSCULAR HEMOGLOBIN 31 pg (27-31); MEAN CORPUSCULAR HGB CONC 33 % (32-36); MEAN CORPUSCULAR VOLUME 93 fL (79.0-98.0); MONOCYTES # (AUTO) 0.4 K/uL (0.0-1.0); MONOCYTES % (AUTO) 4.8 % (1.7-9.3); NEUTROPHILS # (AUTO) 7.4 K/uL (1.8-7.7); NEUTROPHILS % (AUTO) 87.9 % (40.0-70.0); PLATELET COUNT (AUTO) 252 K/uL (130-430); RED BLOOD CELL COUNT(AUTO) 3.23 MIL/uL (4.2-6.2); RED CELL DISTRIBUTION WIDTH 15.8 % (9.0-15.0)
[2017-08-24 06:12] LABS: ANION GAP 6 (5-15); CHLORIDE 110 mmol/L (98-107); CREATININE 0.65 mg/dL (0.55-1.30); GLUCOSE 197 mg/dL (70-99); POTASSIUM 3.8 mmol/L (3.5-5.1); SODIUM SERUM 141 mmol/L (136-145); UREA NITROGEN, BLOOD 22 mg/dL (8-21)
[2017-08-24 07:01] LABS: WHITE BLOOD COUNT (AUTO) 8.4 K/uL (4.8-10.8)
[2017-08-24] MEDS: PANTOPRAZOLE SODIUM 40 MG/VIAL (PROTONIX) IVP SCH (09:23)
[2017-08-24] MEDS: ASPIRIN 81 MG TAB.CHEW GT SCH (09:23)
[2017-08-24] MEDS: DOCUSATE SODIUM 100 MG/10 ML UDC PO SCH (09:23)
[2017-08-24] MEDS: ASCORBIC ACID 500 MG TABLET GT SCH ×2 (09:23→20:24)
[2017-08-24] MEDS: FERROUS SULFATE 300 MG/5 ML UDC GT SCH (09:23)
[2017-08-24] MEDS: NOREPINEPHRINE BITARTRATE 4 MG in NS 246 ML IV PRN (10:50)
[2017-08-24] MEDS: ATORVASTATIN 10 MG TABLET GT SCH (20:24)
[2017-08-24] MEDS: SENNOSIDES 8.6 MG TABLET GT SCH (20:24)
[2017-08-24] MEDS: ENOXAPARIN SODIUM 30 MG/0.3 ML SYRINGE SUBCUT SCH (20:24)
[2017-08-24] MEDS: FLUCONAZOLE 100 mg/ NS 50 ML IV SCH (20:55)
[2017-08-25] VITALS (20 sets, daily range): BP systolic 108–157
[2017-08-25] MEDS: PIPERACILLIN/TAZO 3.375/DEX-IS 50 ML IV SCH ×5 (00:57→23:11)
[2017-08-25] MEDS: POTASSIUM CHLORIDE 20 MEQ in D5NS 1,000 ML IV SCH ×3 (00:57→17:55)
[2017-08-25] MEDS: LevALBUTEROL HCL 1.25 MG/0.5 ML *CONC.* VIAL.NEB (XOPENEX CONC.) INH SCH ×4 (01:02→19:48)
[2017-08-25] MEDS: INSULIN REGULAR, HUMAN 100 UNITS/ML, 10 ML VIAL (novoLIN R) SUBCUT PRN ×2 (06:25→12:12)
[2017-08-25] MEDS: PANTOPRAZOLE SODIUM 40 MG/VIAL (PROTONIX) IVP SCH (08:31)
[2017-08-25] MEDS: DOCUSATE SODIUM 100 MG/10 ML UDC PO SCH (08:31)
[2017-08-25] MEDS: ASPIRIN 81 MG TAB.CHEW GT SCH (08:31)
[2017-08-25] MEDS: FERROUS SULFATE 300 MG/5 ML UDC GT SCH (08:31)
[2017-08-25] MEDS: ASCORBIC ACID 500 MG TABLET GT SCH ×2 (08:31→20:40)
[2017-08-25] MEDS: HYDROcodone/ACETAMIN 5-325 MG TAB (NORCO/ VICODIN) GT PRN (08:33)
[2017-08-25] MEDS: SENNOSIDES 8.6 MG TABLET GT SCH (20:40)
[2017-08-25] MEDS: ATORVASTATIN 10 MG TABLET GT SCH (20:40)
[2017-08-25] MEDS: ENOXAPARIN SODIUM 30 MG/0.3 ML SYRINGE SUBCUT SCH (20:40)
[2017-08-25] MEDS: MUPIROCIN 2% TOPICAL OINTMENT 22 GM NS SCH (20:41)
[2017-08-25] MEDS ORDERED: FLUCONAZOLE 200 mg/ NS 100 ML IV ONE (21:09)
[2017-08-25] MEDS: FLUCONAZOLE 100 mg/ NS 50 ML IV SCH (21:24)
[2017-08-26] VITALS (7 sets, daily range): BP systolic 123–140
[2017-08-26] MEDS: LevALBUTEROL HCL 1.25 MG/0.5 ML *CONC.* VIAL.NEB (XOPENEX CONC.) INH SCH ×4 (00:20→19:40)
[2017-08-26] MEDS: POTASSIUM CHLORIDE 20 MEQ in D5NS 1,000 ML IV SCH ×3 (02:37→16:46)
[2017-08-26] MEDS: LevALBUTEROL HCL 1.25 MG/0.5 ML *CONC.* VIAL.NEB (XOPENEX CONC.) INH PRN (04:17)
[2017-08-26] MEDS: PIPERACILLIN/TAZO 3.375/DEX-IS 50 ML IV SCH (05:30)
[2017-08-26] MEDS: PANTOPRAZOLE SODIUM 40 MG/VIAL (PROTONIX) IVP SCH (10:24)
[2017-08-26] MEDS: ASPIRIN 81 MG TAB.CHEW GT SCH (10:24)
[2017-08-26] MEDS: FERROUS SULFATE 300 MG/5 ML UDC GT SCH (10:24)
[2017-08-26] MEDS: DOCUSATE SODIUM 100 MG/10 ML UDC PO SCH (10:24)
[2017-08-26] MEDS: ASCORBIC ACID 500 MG TABLET GT SCH ×2 (10:24→21:55)
[2017-08-26] MEDS: MUPIROCIN 2% TOPICAL OINTMENT 22 GM NS SCH ×2 (10:25→21:58)
[2017-08-26] MEDS: INSULIN REGULAR, HUMAN 100 UNITS/ML, 10 ML VIAL (novoLIN R) SUBCUT PRN ×2 (12:31→23:56)
[2017-08-26] MEDS: ENOXAPARIN SODIUM 30 MG/0.3 ML SYRINGE SUBCUT SCH (21:55)
[2017-08-26] MEDS: SENNOSIDES 8.6 MG TABLET GT SCH (21:55)
[2017-08-26] MEDS: CEFEPIME 1 GM in D5W 50 ML IV SCH (21:55)
[2017-08-26] MEDS: ATORVASTATIN 10 MG TABLET GT SCH (21:55)
[2017-08-26] MEDS: FLUCONAZOLE 100 mg/ NS 50 ML IV SCH (22:46)
[2017-08-27 00:31] VITALS: BP_SYST 134
[2017-08-27] MEDS: LevALBUTEROL HCL 1.25 MG/0.5 ML *CONC.* VIAL.NEB (XOPENEX CONC.) INH SCH ×3 (00:41→13:27)
[2017-08-27] MEDS: POTASSIUM CHLORIDE 20 MEQ in D5NS 1,000 ML IV SCH ×4 (01:03→16:24)
[2017-08-27] MEDS: INSULIN REGULAR, HUMAN 100 UNITS/ML, 10 ML VIAL (novoLIN R) SUBCUT PRN ×2 (06:04→18:06)
[2017-08-27 08:12] VITALS: BP_SYST 148
[2017-08-27] MEDS: DOCUSATE SODIUM 100 MG/10 ML UDC PO SCH (09:10)
[2017-08-27] MEDS: FERROUS SULFATE 300 MG/5 ML UDC GT SCH (09:10)
[2017-08-27] MEDS: ASCORBIC ACID 500 MG TABLET GT SCH (09:10)
[2017-08-27] MEDS: CEFEPIME 1 GM in D5W 50 ML IV SCH (09:10)
[2017-08-27] MEDS: ASPIRIN 81 MG TAB.CHEW GT SCH (09:10)
[2017-08-27] MEDS: PANTOPRAZOLE SODIUM 40 MG/VIAL (PROTONIX) IVP SCH (09:11)
[2017-08-27] MEDS: MUPIROCIN 2% TOPICAL OINTMENT 22 GM NS SCH (09:11)
[2017-08-27] MEDS: LevALBUTEROL HCL 1.25 MG/0.5 ML *CONC.* VIAL.NEB (XOPENEX CONC.) INH PRN (11:24)
[2017-08-27 12:13] VITALS: BP_SYST 124
[2017-08-27 15:05] VITALS: BP_SYST 126
[2017-08-27 16:00] VITALS: BP_SYST 126
== END 2017-08-27 19:50 | DRG 871 ==
LOC: SED 02:52 → STU 05:21 → SIC 06:58 → STU 08-25 17:27
PROVIDERS: ADMIT Family Medicine; ATTEND Family Medicine
PROC: 02HV33Z Insertion of Infusion Device into Superior Vena Cava, Percutaneous Approach (ICD-10-PCS; principal; 2017-08-23)
PROC: B548ZZA Ultrasonography of Superior Vena Cava, Guidance (ICD-10-PCS; 2017-08-23)
DX: A41.9 Sepsis, unspecified organism (principal); R65.21 Severe sepsis with septic shock; J96.21 Acute and chronic respiratory failure with hypoxia; E43 Unspecified severe protein-calorie malnutrition; J15.6 Pneumonia due to other Gram-negative bacteria; E11.9 Type 2 diabetes mellitus without complications; G30.9 Alzheimer's disease, unspecified; B37.49 Other urogenital candidiasis; J44.0 Chronic obstructive pulmonary disease with (acute) lower respiratory infection; F02.80 Dementia in other diseases classified elsewhere, unspecified severity, without behavioral disturbance, psychotic disturbance, mood disturbance, and anxiety; I10 Essential (primary) hypertension; K21.9 Gastro-esophageal reflux disease without esophagitis; Z86.73 Personal history of transient ischemic attack (TIA), and cerebral infarction without residual deficits; Z87.01 Personal history of pneumonia (recurrent); Z88.1 Allergy status to other antibiotic agents; Z79.82 Long term (current) use of aspirin; Z79.4 Long term (current) use of insulin; Z79.899 Other long term (current) drug therapy; Z93.1 Gastrostomy status; Z22.322 Carrier or suspected carrier of Methicillin resistant Staphylococcus aureus; Z68.21 Body mass index [BMI] 21.0-21.9, adult
CPT/HCPCS: 36415; 36600; 71045; 80048; 80053; 81000-TC; 82803-TC; 82962; 83605; 83690-TC; 84484; 85025; 85610-TC; 85730-TC; 87040-TC; 87070-TC; 87081; 87086; 87186-TC; 87205-TC; 87210-TC; 93005; 94640; 94760; 96361; 96365; 96367; 99285; C1751; C9113; J0692; J1450; J1650; J1815; J2543; J3370; J3480; J7030; J7042; J7050; J7060